=== PATIENT | female | born 1940 | race Asian ===

== ENCOUNTER 2022-05-06 11:34 | Inpatient (IN) | payer MEDICARE, OTHER, SELFPAY ==
[2022-05-06] VITALS (12 sets, daily range): BP systolic 148–181; BP diastolic 66–85; PULSE 51–71; RESP 17–23; TEMP 35.6–36.8; O2SAT 98–100; BMI 28.8; BMI 26.5
--- NOTE | 2022-05-06 11:50 | DI.CT.S_ITS ---
PROCEDURE: CT STROKE INDICATIONS: facial droop, yesterday, resolved and returned, aphasia TECHNIQUE: Noncontrast 4.5 mm thick angled axial sections acquired from the foramen magnum to the vertex, with coronal reformats. For radiation dose reduction, the following was used: automated exposure control, adjustment of mA and/or kV according to patient size. COMPARISON: None. FINDINGS: Image quality: Excellent. CSF spaces: Basal cisterns are patent. No extra-axial fluid collections. The ventricles are symmetric in size and shape. Brain: No intracranial bleeds or masses. There is mild cerebral volume loss for age, with resultant ventricular and sulcal prominence. There are mild periventricular and deep white matter chronic small vessel ischemic changes. There is intracranial internal carotid artery atherosclerosis. Skull and face: Calvarium and visualized facial bones appear intact, without suspicious lesions. Sinuses: Visualized sinuses and mastoids are clear. IMPRESSION: 1. No acute intracranial abnormalities. 2. Mild cerebral volume loss and chronic microvascular ischemic changes. The result was discussed with Dr. Christian. This study fulfills neurological imaging criteria for inclusion or exclusion of acute stroke therapies based on available published neurological guidelines. Dictated by: Caroline Garnett M.D. on 05/06/2022 at 12:16 Approved by: Caroline Garnett M.D. on 05/06/2022 at 12:17
--- NOTE | 2022-05-06 11:51 | DI.CT.S_ITS ---
PROCEDURE: CT ANGIO HEAD AND NECK INDICATIONS: facial droop, aphasia TECHNIQUE: Noncontrast images were performed earlier in the day and not repeated. After the administration of intravenous contrast, 1 mm thick sections acquired from the aortic arch through the [place]. Post-contrast 4.5 mm thick sections then re-acquired from the foramen magnum to the vertex. 3-dimensional ckvixam-ngwhdfpyg-ahxyxukgdr (MIP) and/or volume rendering reformats were acquired of the central intracranial vasculature and neck separately. For radiation dose reduction, the following was used: automated exposure control, adjustment of mA and/or kV according to patient size. COMPARISON: None. FINDINGS: Image quality: Excellent. BRAIN: CSF spaces: Ventricles are normal in size and shape. Basal cisterns are patent. No extra-axial fluid collections. Brain: No midline shift. No intracranial bleeds or masses. Krishnan-white matter interface appears intact. Skull and face: Calvarium and facial bones appear intact, without suspicious lesions. Orbits appear normal. Sinuses: Sinuses and mastoids are clear. HEAD CT ANGIOGRAPHY: Anterior circulation: Intracranial internal carotid arteries are normal in size and flow. The flow within the paired anterior cerebral arteries is normal and symmetric. The flow within the middle cerebral arteries is normal and symmetric. The anterior communicating artery is seen. No aneurysms are seen. Posterior circulation: Visualized portions of the vertebral arteries demonstrate normal caliber, and join to form a normal appearing basilar artery. Flow within the posterior cerebral arteries is normal and symmetric. No aneurysms are seen. NECK CT ANGIOGRAPHY: Carotid system: The great vessels demonstrate a conventional anatomy as they arise from the aortic arch. The origins of the common carotid arteries appear patent. The common carotid arteries demonstrate normal caliber and courses. The bifurcation regions demonstrate mild atherosclerotic irregularity and calcification, yet without a hemodynamically significant stenosis. The more distal internal carotid arteries demonstrate normal course and caliber. Posterior circulation: The origins of the vertebral arteries both appear widely patent. The more superior extracranial portions of both vertebral arteries also demonstrate normal courses and calibers. The left vertebral artery is dominant to the right. Soft tissues: Visualized neck soft tissues demonstrate no suspicious abnormalities. Bones: No suspicious bony lesions. Visualized cervical spine appears normally aligned. Cervical spine degenerative changes are seen, which are worst at the C6-C7 level, where there is moderate to severe disc space narrowing, with associated endplate irregularity and sclerosis. Mild posteriorly directed endplate osteophytes can be seen at this level. Moderate disc space narrowing can be seen at C4-C5 and C5-C6. IMPRESSION: No hemodynamically significant stenosis can be seen within the intracranial circulation or within the arteries of the neck. If there is strong clinical suspicion for an acute stroke, please consider a brain MRI for further evaluation, as it is more sensitive (assuming that there is no contraindication to MRI). Incidental note is made of: Lower cervical spine degenerative change Any quantitative measurements of stenosis were performed using NASCET criteria. Dictated by: Kvng Rush M.D. on 05/06/2022 at 11:20 Approved by: Kvng Rush M.D. on 05/06/2022 at 11:23
[2022-05-06 12:15] LABS: Add Manual Diff / Slide Review NO; Basophils Absolute Auto 0 /uL (0-100); Basophils Percent Auto 0.2 % (0-2); Eosinophils Absolute Auto 0 /uL (0-450); Eosinophils Percent Auto 0.7 % (2-4); Hematocrit 32.4 % (36-46); Hemoglobin 10.9 g/dL (12.0-16.0); Lymphocytes Absolute Auto 1400 /uL (1100-4500); Lymphocytes Percent Auto 21.4 % (25-40); Mean Corpuscular HGB Conc 33.6 % (30-36); Mean Corpuscular Hemoglobin 28.5 PG (26-34); Mean Corpuscular Volume 84.9 fL (80-100); Monocytes Absolute Auto 500 /uL (0-900); Monocytes Percent Auto 7.4 % (3-14); Neutrophils Absolute Auto 4500 /uL (1500-7000); Neutrophils Percent Auto 70.3 % (50-75); Platelet Count 266 X10^3/uL (150-400); Red Blood Cell Count 3.82 X10^6/uL (4.0-5.2); Red Cell Distribution Width 13.9 % (11.6-14.8); White Blood Cell Count 6.4 X10^3/uL (4.5-11.0)
--- NOTE | 2022-05-06 12:36 | DI.MRI.S_ITS ---
PROCEDURE: MR HEAD/BRAIN WO CON INDICATIONS: expressive aphasia, weakness TECHNIQUE: Noncontrast axial T1 spin echo, axial T2 fast spin echo, sagittal and axial FLAIR, coronal T2 fast spin echo, axial gradient echo, axial diffusion and ADC through the brain. COMPARISON: [facility], CT, CT STROKE, 05/06/2022, 11:53. FINDINGS: Image quality: Excellent. CSF Spaces: Basal cisterns are patent. No extra-axial fluid collections. Ventricles are normal in size and shape. Brain: Focal 1.5 cm restricted diffusion noted in the left minaya radiata periventricular white matter without mass effect or evidence of hemorrhage. No intracranial masses or hemorrhage. Krishnan/white matter interface is normal. Brainstem appears normal. Normal intravascular flow voids are present. Mild atrophy and white matter chronic ischemic change noted Skull and face: Calvarium has normal marrow signal. Orbits appear normal. Bilateral intraocular lens replacements noted. Sinuses: Sinuses and mastoids are clear. IMPRESSION: Acute left deep white matter infarct, 1.5 cm. No mass effect or intracranial hemorrhage. Moderate atrophy and multifocal white matter chronic ischemic change Approved by: Rob Hamilton M.D. on 05/06/2022 at 14:37
--- NOTE | 2022-05-06 12:37 | ED.NEUROSD ---
HPI - Neuro Symptoms/Deficit General Chief Complaint: Neuro Symptoms/Deficit Stated Complaint: stroke like symptoms Time Seen by Provider: 05/06/22 11:50 Source: patient and family (spouse) Mode of arrival: Family Vehicle Limitations: no limitations History of Present Illness HPI Narrative: This is a 81 year old female with a history of hypertension and a single antihypertensive. Who comes to the emergency department for stroke like symptoms. Patient had symptoms starting around noon yesterday she was seen at [facility] told she had a TIA she is given prescription for Plavix but has not started it. She does not normally take any anticoagulation, not even aspirin daily. Yesterday she had some mild speech changes, some facial droop that is reportedly resolved and some one-sided weakness her spouse and patient indicates that it had improved but not necessarily completely resolved but was very mild. This morning at 8:00 a.m. when she woke up she had pretty significant expressive aphasia, recurrent worsened facial droop and some mild weakness although they do not indicate that that is worse than yesterday. Patient has not had prior strokes. She denies any fevers, no chest pain or shortness of breath, no nausea or vomiting, no GI or urinary symptoms. She does have an expressive aphasia and has difficulty speaking clearly. Her at bedside confirms this as well. She has had a prior back surgery several years ago. No tobacco, occasional alcohol, no illicit her primary care is [facility]. At would be they indicate she had head CT, carotid US as part of their ER workup. On Anticoagulants: Yes Related Data Home Medications Medication Instructions Recorded Confirmed losartan 100 mg tablet 100 mg PO DAILY 11/10/20 05/06/22 vitamin B complex 1 tab PO DAILY 11/10/20 05/06/22 cholecalciferol (vitamin D3) 125 125 mcg PO DAILY 03/04/22 05/06/22 mcg (5,000 unit) capsule pantoprazole 40 mg tablet,delayed 1 tab PO DAILY 03/04/22 05/06/22 release metoprolol tartrate 50 mg tablet 50 tab PO DAILY 05/06/22 05/06/22 Allergies Allergy/AdvReac Type Severity Reaction Status Date / Time No Known Drug Allergies Allergy Verified 05/06/22 12:16 Review of Systems Review of Systems ROS Unobtainable: All systems reviewed & are unremarkable except as noted in HPI and below Hematologic/Lymphatic On Anticoagulants: Yes Patient History Medical History Left knee DJD Surgical History H/O section H/O removal of cyst Family History Other No pertinent family history Social History household members: spouse Smoking Status: Never smoker alcohol intake: current Smoking Status: Never smoker alcohol intake frequency: 0-2 drinks per day Substance Use Type: does not use Exam Narrative Exam Narrative: GEN: well nourished, well appearing female, alert and oriented x 3, patient appears to be in mild distress. HEENT: Atraumatic, pupils are equal round reactive to light, extraocular movements are intact, nares are clear, Throat is clear without any exudates, erythema, tonsillar enlargement or uvular deviation, perhaps mild weakness on the left when puffing cheeks. HEART: Regular rate and rhythm without murmur, clicks, rubs. Pulses are equal in upper and lower extremities LUNGS:Lungs clear to auscultation, no wheezes, rales, crackles, chest moves symmetrically, no tachypnea accessory muscle use. 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 SKIN: No rash, erythema or other skin changes Initial Vital Signs Initial Vital Signs: Vital Signs Temperature 97.7 F 05/06/22 12:00 Pulse Rate 71 05/06/22 12:00 Respiratory Rate 22 05/06/22 12:00 Blood Pressure 181/73 H 05/06/22 12:00 Pulse Oximetry 99 05/06/22 12:00 Oxygen Delivery Method 05/06/22 12:00 Scores NIH Stroke Scale Level of Conciousness: Alert, keenly responsive Ask month/age: Answers both questions correctly. Open/close eyes, close hand: Performs both tasks correctly Best gaze horizontal: Normal Visual nava: No visual loss Facial palsy: Minor paralysis, flattened nasolabial fold, asymmetry on smiling Left arm drift: No drift for full 10 sec Right arm drift: No drift for full 10 sec Left leg drift: No drift for full 5 sec Right leg drift: No drift for full 5 sec Limb ataxia: Present in one limb Sensory on face/arms/legs: Normal, no sensory loss Best language: Severe aphasia, not much is understood, fragmented Dysarthria: Mild to mod,some slurring Extinction or inattention: No abnormality Total NIH Stroke scale score: 5 Course Orders Ordered: Aspirin (Aspirin 325 Mg Tablet) 325 mg PO DAILY [facility] Last Admin: 05/07/22 08:30 Dose: 325 mg Documented By: VEE Atorvastatin Calcium (Atorvastatin 20 Mg Tablet) 40 mg PO BEDTIME [facility] Last Admin: 05/07/22 20:18 Dose: 40 mg Documented By: Admin: 05/06/22 21:33 Dose: 40 mg Documented By: INO Clopidogrel Bisulfate (Clopidogrel 75 Mg Tablet) 75 mg PO DAILY [facility] Last Admin: 05/07/22 08:30 Dose: 75 mg Documented By: VEE Enoxaparin Sodium (Enoxaparin 30 Mg/0.3 Ml Syringe) 30 mg SUBCUT DAILY [facility] Last Admin: 05/07/22 08:30 Dose: 30 mg Documented By: VEE Sodium Chloride (Normal Saline 0.9%) 1,000 mls @ 100 mls/hr IV CONT [facility] Last Admin: 05/06/22 15:41 Dose: 100 mls/hr Documented By: OW Dextrose/Sodium Chloride (Dextrose 5%-0.45% Ns) 1,000 mls @ 50 mls/hr IV CONT [facility] Last Admin: 05/07/22 14:51 Dose: 50 mls/hr Documented By: Infusion: 05/07/22 14:51 Dose: 50 mls/hr Documented By: Admin: 05/06/22 18:57 Dose: 50 mls/hr Documented By: OW Naloxone HCl (Naloxone 0.4 Mg/Ml Vial) 0.2 mg IV Q2MIN PRN PRN Reason: Opiate Reversal Pantoprazole Sodium (Pantoprazole Dr 40 Mg Tablet) 40 mg PO 0700 [facility] Last Admin: 05/07/22 06:44 Dose: Not Given Documented By: CS Discontinued Medications Aspirin (Aspirin 81 Mg Chew Tab) 324 mg PO NOW ONE Stop: 05/06/22 12:37 Last Admin: 05/06/22 12:50 Dose: 324 mg Documented By: SB Clopidogrel Bisulfate (Clopidogrel 75 Mg Tablet) 300 mg PO NOW ONE Stop: 05/06/22 16:37 Last Admin: 05/06/22 16:45 Dose: 300 mg Documented By: OW Sodium Chloride (Normal Saline 0.9%) 1,000 mls @ 150 mls/hr IV CONT [facility] Last Infusion: 05/06/22 15:07 Dose: 0 mls/hr Documented By: JUAN FRANCISCO Admin: 05/06/22 12:50 Dose: 150 mls/hr Documented By: SB Reevaluation(s) Reevaluation #1: Updated patient has been on findings. Head CT and CT angio were negative. She does not appear to be a candidate for code IR and is far outside the window for tPA. No other acute causes were found. Plan for MRI and discussion with hospitalist for admission. Consultations Consultation #1: Dr. Oliveira, hospitalist accepts for admission. MRI was ordered we discussed she is okay with brain MRI without as patient has had CT angiography. They have had aspirin. Blood pressures been appropriate and has not been receiving any medications. I did not discuss with tele stroke as patient was not candidate with negative head CT, CTA and is not called IR candidate. Vital Signs Vital signs: Vital Signs - 8 hr 05/06/22 12:00 Temperature 97.7 F Pulse Rate 71 Respiratory Rate 22 Blood Pressure 181/73 H Pulse Oximetry 99 Oxygen Delivery Method Room Air MDM - Neuro Symptoms/Deficit Lab Data Result diagrams: 05/06/22 18:25 05/06/22 18:25 Labs: Lab Results 05/06/22 05/06/22 05/06/22 Range/Units 12:00 12:00 12:00 WBC 6.4 (4.5-11.0) X10^3/uL RBC 3.82 L (4.0-5.2) X10^6/uL Hgb 10.9 L (12.0-16.0) g/dL Hct 32.4 L (36-46) % MCV 84.9 (80-100) fL MCH 28.5 (26-34) PG MCHC 33.6 (30-36) % RDW 13.9 (11.6-14.8) % Plt Count 266 (150-400) X10^3/uL Neut % (Auto) 70.3 (50-75) % Lymph % (Auto) 21.4 L (25-40) % [place] % (Auto) 7.4 (3-14) % Eos % (Auto) 0.7 L (2-4) % Baso % (Auto) 0.2 (0-2) % Neut # (Auto) 4500 (4989-0020) /uL Lymph # (Auto) 1400 (0151-3192) /uL [place] # (Auto) 500 (0-900) /uL Eos # (Auto) 0 (0-450) /uL Baso # (Auto) 0 (0-100) /uL PT 11.0 (10.1-12.7) SECONDS INR 1.0 (0.9-1.3) APTT 28 (26.4-36.2) SECONDS Sodium 137 (137-145) mmol/L Potassium 4.1 (3.4-5.1) mmol/L Chloride 105 (98-107) mmol/L Carbon Dioxide 26 (22-32) mmol/L BUN 23 H (7-17) mg/dL Creatinine 1.27 H (0.52-1.04) mg/dL Estimated GFR 42 L (>60) mL/min BUN/Creatinine Ratio 18.1 (6-22) Glucose 91 (80-110) mg/dL Calcium 9.0 (8.4-10.2) mg/dL Total Creatine Kinase 66 (30-135) U/L CK-MB (CK-2) TNP CK-MB (CK-2) Rel Index TNP Troponin I < 0.012 (0.01-0.034) ng/mL SARS-CoV-2 (PCR) (Negative) 05/06/22 Range/Units 12:55 WBC (4.5-11.0) X10^3/uL RBC (4.0-5.2) X10^6/uL Hgb (12.0-16.0) g/dL Hct (36-46) % MCV (80-100) fL MCH (26-34) PG MCHC (30-36) % RDW (11.6-14.8) % Plt Count (150-400) X10^3/uL Neut % (Auto) (50-75) % Lymph % (Auto) (25-40) % [place] % (Auto) (3-14) % Eos % (Auto) (2-4) % Baso % (Auto) (0-2) % Neut # (Auto) (2217-4574) /uL Lymph # (Auto) (9065-5322) /uL [place] # (Auto) (0-900) /uL Eos # (Auto) (0-450) /uL Baso # (Auto) (0-100) /uL PT (10.1-12.7) SECONDS INR (0.9-1.3) APTT (26.4-36.2) SECONDS Sodium (137-145) mmol/L Potassium (3.4-5.1) mmol/L Chloride (98-107) mmol/L Carbon Dioxide (22-32) mmol/L BUN (7-17) mg/dL Creatinine (0.52-1.04) mg/dL Estimated GFR (>60) mL/min BUN/Creatinine Ratio (6-22) Glucose (80-110) mg/dL Calcium (8.4-10.2) mg/dL Total Creatine Kinase (30-135) U/L CK-MB (CK-2) CK-MB (CK-2) Rel Index Troponin I (0.01-0.034) ng/mL SARS-CoV-2 (PCR) Negative (Negative) Point of Care Testing Glucose POC 87 Urine Dip Bedside Urine Glucose Negative Bedside Urine Bilirubin - Negative Bedside Urine Ketone - Negative Urine Specific [place] 1.015 Bedside Urine Occult Blood - Negative Bedside Urine pH 6.0 Bedside Urine Protein - Negative Bedside Urine Urobilinogen - Negative Bedside Urine Nitrite - Negative Bedside Urine Leukocytes - Negative Esterase Imaging Data CT scan - head: Radiologist's Impression: Close Head/Neck CTA (Signed) Kvng Rush - 05/06/[address] (Signed) Rajat Garnett - 05/06/22 DI Result CC 08/22/19 Radiology - Historical 03/24/[address] [address] [address] Scan Report Signed Patient: Marcie Joyner MR#: [id number] : 1940 Acct:[id number] Age/Sex: 81 / F Date of Service: 05/06/22 Loc: ED Accession Number: [id number] ?? Procedure: CT Stroke Ordering Provider: Jossie Christian D.O. PROCEDURE:? CT STROKE ? INDICATIONS:? facial droop, yesterday, resolved and returned, aphasia ? TECHNIQUE:? Noncontrast 4.5 mm thick angled axial sections acquired from the foramen magnum to the vertex, with coronal reformats.? For radiation dose reduction, the following was used:? automated exposure control, adjustment of mA and/or kV according to patient size.? ? COMPARISON:? None. ? FINDINGS:? Image quality:? Excellent.? ? CSF spaces:? Basal cisterns are patent.? No extra-axial fluid collections.? The ventricles are symmetric in size and shape.? ? Brain:? No intracranial bleeds or masses.? There is mild cerebral volume loss for age, with resultant ventricular and sulcal prominence.? There are mild periventricular and deep white matter chronic small vessel ischemic changes.? There is intracranial internal carotid artery atherosclerosis.? ? Skull and face:? Calvarium and visualized facial bones appear intact, without suspicious lesions.? ? Sinuses:? Visualized sinuses and mastoids are clear.? ? IMPRESSION:? ? 1. No acute intracranial abnormalities. 2. Mild cerebral volume loss and chronic microvascular ischemic changes. ? The result was discussed with Dr. Christian. ? This study fulfills neurological imaging criteria for inclusion or exclusion of acute stroke therapies based on available published neurological guidelines.? ? ? Dictated by: Caroline Garnett M.D. on 05/06/2022 at 12:16 ? ? Approved by: Caroline Garnett M.D. on 05/06/2022 at 12:17?? CTA - brain/neck: Radiologist's Impression: Close Head/Neck CTA (Signed) Kvng Rush - 05/06/[address] (Signed) Rajat Garnett - 05/06/22 DI Result CC 08/22/19 Radiology - Historical 03/24/17 [facility] [address] CT Scan Report Signed Patient: Marcie Joyner MR#: [id number] : 1940 Acct:[id number] Age/Sex: 81 / F Date of Service: 05/06/22 Loc: ED Accession Number: [id number] ?? Procedure: CT Stroke Ordering Provider: Jossie Christian D.O. PROCEDURE:? CT STROKE ? INDICATIONS:? facial droop, yesterday, resolved and returned, aphasia ? TECHNIQUE:? Noncontrast 4.5 mm thick angled axial sections acquired from the foramen magnum to the vertex, with coronal reformats.? For radiation dose reduction, the following was used:? automated exposure control, adjustment of mA and/or kV according to patient size.? ? COMPARISON:? None. ? FINDINGS:? Image quality:? Excellent.? ? CSF spaces:? Basal cisterns are patent.? No extra-axial fluid collections.? The ventricles are symmetric in size and shape.? ? Brain:? No intracranial bleeds or masses.? There is mild cerebral volume loss for age, with resultant ventricular and sulcal prominence.? There are mild periventricular and deep white matter chronic small vessel ischemic changes.? There is intracranial internal carotid artery atherosclerosis.? ? Skull and face:? Calvarium and visualized facial bones appear intact, without suspicious lesions.? ? Sinuses:? Visualized sinuses and mastoids are clear.? ? IMPRESSION:? ? 1. No acute intracranial abnormalities. 2. Mild cerebral volume loss and chronic microvascular ischemic changes. ? The result was discussed with Dr. Christian. ? This study fulfills neurological imaging criteria for inclusion or exclusion of acute stroke therapies based on available published neurological guidelines.? ? ? Dictated by: Caroline Garnett M.D. on 05/06/2022 at 12:16 ? ? Approved by: Caroline Garnett M.D. on 05/06/2022 at 12:17?? ECG Data Attestation: I personally reviewed and interpreted this ECG as follows: Interpretation: Sinus rhythm rate of 67 MO 168 QRS 82 QTC 435. No acute ST changes appreciated. MDM Narrative Medical decision making narrative: This is a 81-year-old female who was reportedly diagnosed with TIA yesterday she was started with prescription for Plavix but had not started it. She has history of hypertension but no other known risk factors besides that age. She and her indicate that symptoms had almost completely resolved but were very mild. This morning when she woke up at 8:00 a.m. she had expressive aphasia that was present upon awakening, describes some weakness as one-sided. Patient does seem to have significant speech changes. She is not a candidate for tPA secondary to wakening with her symptoms and being outside the 4 and half hour window. Initial head CT is negative an aspirin was given. CT angio shows no critical stenosis or changes. Labs show no acute cause, no high a poke ischemia. Patient case discussed with hospitalist who accepts for admission. She did receive aspirin 324 mg in the department. Continue permissive hypertension and patient has been within parameters. Stroke Core Measures Exclusion Criteria TPA in CVA: Symptom Onset >3 or 4.5 Hours Discharge Plan Departure Patient Disposition: Admitted as Observation Clinical Impression: Acute CVA (cerebrovascular accident) Admit Date/Time: 05/06/22 13:58 Admit Provider: Amaya Oliveira
[2022-05-06 12:49] LABS: PTT Partial Thromboplastin Tim 28 SECONDS (26.4-36.2)
[2022-05-06] MEDS: SODIUM CHLORIDE 0.9% 1,000 ML 150 ML IV (12:50)
[2022-05-06] MEDS: ASPIRIN 81 MG CHEW TAB 324 MG PO (12:50)
[2022-05-06 12:55] LABS: Carbon Dioxide 26 mmol/L (22-32); Chloride 105 mmol/L (98-107); Creatine Kinase 66 U/L (30-135); Potassium 4.1 mmol/L (3.4-5.1); Sodium 137 mmol/L (137-145); Troponin I < 0.012 ng/mL (0.01-0.034)
[2022-05-06 12:56] LABS: BUN Creatinine Ratio 18.1 (6-22); Blood Urea Nitrogen 23 mg/dL (7-17); Estimated Glomerular Filt Rate 42 mL/min (>60); Glucose 91 mg/dL (80-110)
--- NOTE | 2022-05-06 12:58 | PC.NURSE ---
Spouse reports symptoms started yesterday at noon. She was at [facility], diagnosed with TIA and sent home with new Rx plavix, which has not been filled yet. Pt reports all symptoms had not resolved before d/c from [facility]. This morning upon awakening around 0800, spouse noted that pt had issues with speech (slurred and trouble finding words). Pt NIH at 5 upon arriving at ED. Slight left sided droop, trouble word finding/slurred speech, left supervisor drilling and shooting slightly weaker than right. Pt reports feeling weaker on left as well.
[2022-05-06 13:16] LABS: COVID19 -Nasal RAPID Negative (Negative)
[2022-05-06] MEDS: SODIUM CHLORIDE 0.9% 1,000 ML 100 ML IV (15:41)
--- NOTE | 2022-05-06 16:28 | PM.HP.1 ---
History of Present Illness History of Present Illness Chief complaint: stroke like symptoms Narrative: cc aphasia and weakness pt is 81 y/o female with h/o uncontrolled hypertension, comes to the emergency department for weakness , aphasia, stroke like symptoms. She had symptoms yesterday, showed up in other ER and after w/u in ER she has been told mini stroke and sent home Per she improved but next morning ( today) she woke up with worsened weakness and aphasia. She presented to [facility] and CT was unremarkable but MRI shows L stroke 1.5 cm white matter. She has been given asa 325 mg and admitted to acute care. She denies chest pain, nausea, vomiting, diarrhea, headache, vision changes. She does have an expressive aphasia and has difficulty speaking clearly.? Her at bedside ? No tobacco, occasional alcohol, no illicit Patient History Medical History Left knee DJD Surgical History H/O section H/O removal of cyst Family & Social History Family History Other No pertinent family history Social History: household members spouse Prior Living Arrangements House Safety & Behavioral: Feels Safe in Current Yes Environment Been Physically Hurt or No Threatened By a Person Tobacco & Substance use: Smoking Status Never smoker alcohol intake current alcohol intake frequency 0-2 drinks per day Substance Use Type does not use Meds Home Medications and Allergies Home Medications Medication Instructions Recorded Confirmed Type losartan 100 mg tablet 100 mg PO DAILY 11/10/20 05/06/22 History vitamin B complex 1 tab PO DAILY 11/10/20 05/06/22 History cholecalciferol (vitamin D3) 125 125 mcg PO DAILY 03/04/22 05/06/22 History mcg (5,000 unit) capsule pantoprazole 40 mg tablet,delayed 1 tab PO DAILY 03/04/22 05/06/22 History release metoprolol tartrate 50 mg tablet 50 tab PO DAILY 05/06/22 05/06/22 History Allergies Allergy/AdvReac Type Severity Reaction Status Date / Time No Known Drug Allergies Allergy Verified 05/06/22 12:16 Review of Systems Review of Systems ROS: Yes All systems reviewed with the patient and are negative except as otherwise documented Eyes Eyes: Reports as per HPI ENT Ears, Nose, Mouth, and Throat: Yes as per HPI Cardiovascular Cardiovascular: Reports as per HPI Respiratory Respiratory: Reports as per HPI Gastrointestinal Gastrointestinal: Reports as per HPI Genitourinary Genitourinary: Reports as per HPI Musculoskeletal Musculoskeletal: Reports as per HPI Integumentary/Breasts Skin/Breast: Reports as per HPI Neurologic Neurologic: Reports as per HPI Psychiatric Psychiatric: Reports as per HPI Exam Vital Signs (past 8 hours): - 05/06/22 12:00 05/06/22 12:17 05/06/22 12:21 Temperature 97.7 F Pulse Rate 71 68 Respiratory Rate 22 20 Blood Pressure 181/73 H 163/68 H Pulse Oximetry 99 Oxygen Delivery Method Room Air Oxygen Flow Rate 05/06/22 12:21 05/06/22 12:30 05/06/22 12:37 Temperature Pulse Rate 67 66 Respiratory Rate 23 20 Blood Pressure 153/68 H Pulse Oximetry 99 99 Oxygen Delivery Method Oxygen Flow Rate 05/06/22 12:37 05/06/22 13:00 05/06/22 13:30 Temperature Pulse Rate 63 63 56 L Respiratory Rate 19 19 22 Blood Pressure Pulse Oximetry 99 100 100 Oxygen Delivery Method Oxygen Flow Rate 05/06/22 14:00 05/06/22 14:30 05/06/22 13:58 Temperature 96.1 F L Pulse Rate 51 L 52 L 55 L Respiratory Rate 20 20 17 Blood Pressure 148/85 H 159/77 H Pulse Oximetry 100 100 100 Oxygen Delivery Method Oxygen Flow Rate 0 Oxygen Delivery Method Room Air Oxygen Flow Rate 0 Const General: cooperative and well developed Orientation: alert, awake and oriented x3 [facility] Head: normocephalic and atraumatic Ears: external ears normal Nose: external nose normal Mouth: oral mucosae normal Eyes Pupils: PERRL EOM: EOM intact bilaterally Neck Neck: full ROM and supple Thyroid: thyroid normal Chest Chest: normal inspection of the chest Resp Auscultation: clear to auscultation bilaterally Cardio Rate: regular rate Rhythm: regular rhythm GI Inspection: normal to inspection Palpation: soft and No tender Auscultation: normal bowel sounds Back/Spine/Pelvis Back: normal to inspection Skin General: no rashes or lesions noted Neuro General: patient alert, patient awake, gait normal, moves all extremities and no focal motor deficits Cranial Nerves: CN's II-XI intact bilaterally Speech: abnormal speech Extrem General: normal to inspection, full ROM and no clubbing, cyanosis or edema Psych Mental Status: mental status grossly normal Mood: congruent mood Affect: normal affect Objective Imaging MRI - head: My impression: Acute left deep white matter infarct, 1.5 cm.? No mass effect or intracranial hemorrhage. ? Moderate atrophy and multifocal white matter chronic ischemic change ? Labs Result Diagrams: 05/06/22 12:00 05/06/22 12:00 Labs: Laboratory Results - last 24 hr 05/06/22 05/06/22 05/06/22 12:00 12:00 12:00 WBC 6.4 RBC 3.82 L Hgb 10.9 L Hct 32.4 L MCV 84.9 MCH 28.5 MCHC 33.6 RDW 13.9 Plt Count 266 Neut % (Auto) 70.3 Lymph % (Auto) 21.4 L [place] % (Auto) 7.4 Eos % (Auto) 0.7 L Baso % (Auto) 0.2 Neut # (Auto) 4500 Lymph # (Auto) 1400 [place] # (Auto) 500 Eos # (Auto) 0 Baso # (Auto) 0 PT 11.0 INR 1.0 APTT 28 Sodium 137 Potassium 4.1 Chloride 105 Carbon Dioxide 26 BUN 23 H Creatinine 1.27 H Estimated GFR 42 L BUN/Creatinine Ratio 18.1 Glucose 91 Calcium 9.0 Total Creatine Kinase 66 CK-MB (CK-2) TNP CK-MB (CK-2) Rel Index TNP Troponin I < 0.012 SARS-CoV-2 (PCR) 05/06/22 12:55 WBC RBC Hgb Hct MCV MCH MCHC RDW Plt Count Neut % (Auto) Lymph % (Auto) [place] % (Auto) Eos % (Auto) Baso % (Auto) Neut # (Auto) Lymph # (Auto) [place] # (Auto) Eos # (Auto) Baso # (Auto) PT INR APTT Sodium Potassium Chloride Carbon Dioxide BUN Creatinine Estimated GFR BUN/Creatinine Ratio Glucose Calcium Total Creatine Kinase CK-MB (CK-2) CK-MB (CK-2) Rel Index Troponin I SARS-CoV-2 (PCR) Negative Assessment & Plan Assessment & Plan narrative: 81 y/o female with L deep white matter stroke Acute CVA teleneurology consulted -continue asa 325 mg daily -Plavix 300 mg now and 765 daily for 21 days -high intensity statin -neurochecks -telemetry monitoring -PT/OT -speech consult -lipid panel in AM Hypertension - permissive hypertension -holding home meds DVT prophylaxis: lovenox Code status: full discussed with tele neurology, pt , rn and Time Spent With Patient Critical Care time: I spent a total of [] minutes of critical care time on this patient's care today; this time is exclusive of procedural time. Quality VTE Deep Vein Thrombosis/Pulmonary Embolism Present on Admission: No
[2022-05-06] MEDS: CLOPIDOGREL 75 MG TABLET 300 MG PO (16:45)
[2022-05-06 18:38] LABS: Add Manual Diff / Slide Review NO; Basophils Absolute Auto 0 /uL (0-100); Basophils Percent Auto 0.2 % (0-2); Eosinophils Absolute Auto 0 /uL (0-450); Eosinophils Percent Auto 0.6 % (2-4); Hematocrit 32.6 % (36-46); Hemoglobin 11.1 g/dL (12.0-16.0); Lymphocytes Absolute Auto 1400 /uL (1100-4500); Lymphocytes Percent Auto 24.3 % (25-40); Mean Corpuscular HGB Conc 33.9 % (30-36); Mean Corpuscular Hemoglobin 28.7 PG (26-34); Mean Corpuscular Volume 84.6 fL (80-100); Monocytes Absolute Auto 300 /uL (0-900); Monocytes Percent Auto 5.2 % (3-14); Neutrophils Absolute Auto 4000 /uL (1500-7000); Neutrophils Percent Auto 69.7 % (50-75); Platelet Count 211 X10^3/uL (150-400); Red Blood Cell Count 3.85 X10^6/uL (4.0-5.2); Red Cell Distribution Width 14.3 % (11.6-14.8); White Blood Cell Count 5.7 X10^3/uL (4.5-11.0)
[2022-05-06] MEDS: DEXTROSE 5%-0.45% NS 1,000 ML 50 ML IV (18:57)
--- NOTE | 2022-05-06 19:22 | PC.NURSE ---
Pt arrived to the unit from ED around 1530. Pt is AxOx3-4, slightly slurred speech and slow speech. VSS, pt denies pain. Pt is on RA and sats 100%. N No skin issued. pt goes to bathroom with 1 person assistance. NIH score 4 when arrived to the unit. Pt is NPO now and tomorrow pt will have speech eval. BG-87 around 1630 so pt is now on D5 1/2 NS running 50ml/hr. CT was done, no significant finding except minor ischemic change. MRI was done and found that pt has L stroke 1.5 cm whiter matter. Pt's was in the room and he'll be back tomorrow. Continue monitor.
[2022-05-06] MEDS: ATORVASTATIN 20 MG TABLET 40 MG PO (21:33)
[2022-05-07] VITALS (8 sets, daily range): BP systolic 128–155; BP diastolic 54–78; PULSE 54–60; RESP 14–19; TEMP 35.9–36.8; O2SAT 98–100
[2022-05-07 00:58] LABS: BUN Creatinine Ratio 17.7 (6-22); Blood Urea Nitrogen 20 mg/dL (7-17); Calcium 8.9 mg/dL (8.4-10.2); Carbon Dioxide 24 mmol/L (22-32); Chloride 109 mmol/L (98-107); Estimated Glomerular Filt Rate 49 mL/min (>60); Glucose 94 mg/dL (80-110); HEMOLYSIS 21 (0-50); Potassium 4.6 mmol/L (3.4-5.1); Sodium 140 mmol/L (137-145)
[2022-05-07 02:11] LABS: Cholesterol 238 mg/dL (140-199); HDL Cholesterol 59 mg/dL (40-60); LDL Cholesterol Calculated 155 mg/dL (<100); Triglycerides 121 mg/dL (35-150)
--- NOTE | 2022-05-07 08:29 | DI.ECHO.S_ITS ---
[place] +---------+ [facility] +---------+ : : [address] : : : : [id number] : : : : Phone: [phone]+ Echocardiogram Report + + :Name: BALNCHE SOLORZANO Study Date: 05/08/2022 Height: 59 in : :[facility] ReadingLocation: Weight: 131 lb: : Gender: Female BSA: 1.5 m2 : :: 1940 Age: 81 yrs : :Reason For Study: CVA : :Ordering Physician: : :BÁRBARA HIGGINS Performed By: Dayanna Maldonado : :Referring: UNSPECIFIED : + + Interpretation Summary The left ventricle is normal in size. The ejection fraction is estimated to be 65-70%. There is no LV thrombus. The right ventricle is normal in size and function. No significant valvular pathology seen. The IVC is of normal diameter and collapses greater than 50% with a sniff. This suggests a low right atrial pressure of 3 mm Hg. There is mild luminal irregularity and echogenicity in the abdominal aorta, suggestive of aortic atherosclerotic disease. Mild atherosclerotic plaque(s) in the aortic arch. The patient was in sinus bradycardia with heart rates between 51-55 bpm during the exam. Procedure: A two-dimensional transthoracic echocardiogram with color flow and Doppler was performed. The study quality was technically adequate. There is no prior echocardiogram noted for this patient. The patient was in sinus bradycardia with heart rates between 51-55 bpm during the exam. Left Ventricle: There is mild proximal septal thickening noted. There is no echo evidence for significant left ventricular outflow tract obstruction. The left ventricle is normal in size. There is no thrombus. A false chord is noted (normal variant). The ejection fraction is estimated to be 65-70%. Left ventricular systolic function is normal. There are no focal wall motion abnormalities. MV E/A: 0.59 Med Peak E' Sloan: 3.5 cm/sec E/E' med: 17.2. Right Ventricle: The right ventricle is normal in size and function. Atria: The left atrium is mildly dilated. Right atrial size is normal. There is no Doppler evidence for an interatrial shunt. Mitral Valve: There is a moderate posterior mitral annulus calcification involving the base of the posterior mitral leaflet. No typical vegetation or thrombus seen. There is no mitral valve stenosis. There is mild mitral regurgitation. Aortic Valve: The aortic valve is trileaflet. The aortic valve opens well. There is no aortic valve stenosis. No aortic regurgitation is present. Tricuspid Valve: The tricuspid valve is normal in structure and function. The right ventricular systolic pressure is estimated to be at least 20 mmHg based on an estimated right atrial pressure of 3 mm Hg. There is trace tricuspid regurgitation. Pulmonic Valve: The pulmonic valve leaflets are thin and pliable; valve motion is normal. There is trace pulmonic regurgitation. Great Vessels: The aortic root is normal size. The ascending aorta is normal in size. There is mild luminal irregularity and echogenicity in the abdominal aorta, suggestive of aortic atherosclerotic disease. Mild atherosclerotic plaque(s) in the aortic arch. The pulmonary artery is normal size. The IVC is of normal diameter and collapses greater than 50% with a sniff. This suggests a low right atrial pressure of 3 mm Hg. Pericardium/ Pleura There is no pericardial effusion. MMode/2D Measurements & Calculations LVIDd: 4.7 cm LVOT diam: 2.1 cm LVIDs: 1.8 cm Ao root diam: 3.4 cm FS: 62.1 % asc Aorta Diam: 3.5 cm IVSd: 0.69 cm Ao Arch Diam (Prox Trans): 2.3 cm LVPWd: 0.75 cm LV gomez. diameter/BSA (cm/m^2): 3.1 LV sys. diameter/BSA (cm/m^2): 1.2 LA A2 area: 18.7 cm2 RA long axis: 4.2 cm LA A4 area: 16.5 cm2 RA area: 7.2 cm2 LA length (vol): 5.0 cm RA vol: 10.4 ml LA vol: 52.7 ml RA : 6.7 ml/m2 LA vol index: 34.2 ml/m2 IVC diam: 1.7 cm RVD1 (basal): 2.2 cm TAPSE: 1.7 cm Doppler Measurements & Calculations LVOT Max Sloan: 93.9 cm/sec MV E max sloan: 59.6 cm/sec LV V1 max P.5 mmHg MV A max sloan: 100.8 cm/sec LV V1 VTI: 24.5 cm MV E/A: 0.59 Med Peak E' Sloan: 3.5 cm/sec E/E' med: 17.2 Lat Peak E' Sloan: 7.1 cm/sec E/E' lat: 8.5 E/e' average: 12.8 MV P1/2t: 92.0 msec TR max sloan: 208.1 cm/sec MV P1/2t max sloan: 60.2 cm/sec TR max P.3 mmHg MVA(P1/2t): 2.4 cm2 PA V2 max: 77.4 cm/sec PA V2 mean: 55.5 cm/sec PA mean P.3 mmHg PA Accel Time: 0.07 sec SV(LVOT): 85.4 ml Reading Physician:03:31 PM
[2022-05-07] MEDS: ENOXAPARIN 30 MG/0.3 ML SYRINGE SUBCUT (08:30)
[2022-05-07] MEDS: CLOPIDOGREL 75 MG TABLET PO (08:30)
[2022-05-07] MEDS: ASPIRIN 325 MG TABLET PO (08:30)
--- NOTE | 2022-05-07 09:18 | PT.IIE ---
Surgical History (Last Reviewed 05/06/22 @ 12:43 by Jossie Christian DO) H/O section H/O removal of cyst Medical History (Last Reviewed 05/06/22 @ 12:43 by Jossie Christian DO) Left knee DJD Physical Therapy Inpatient Evaluation/Re-Eval M1 PT/OT-IP Prior Functional Status Start: 05/07/22 07:43 Freq: NEEDED Status: Active Protocol: Document 05/07/22 09:18 AW (Rec: 05/07/22 10:06 AW [id number]) Medical Review Prior Functional Status Medical History Reviewed Yes Communication Pt's primary language is Omani. She is typically able to express herself with ease in O[place]i and Australian. Mobility and Gait Pt is independently mobile. She had left lower extremity radiculopathy last year and ultimately underwent lumbar spine surgery with good effect but feels her left leg is still somewhat weaker. Activities of Daily Living and IADL's Independent with ADL's. Pt drives. She manages her own medications. Social History Household Members spouse Living Arrangements House Number of Floors (Floors) Two Floors Number of Stairs To Enter/Railing? 2 NIMISHA with R rail ascending through the garage which is her typical entrance. One flight up to bedroom level with unilateral rail. Home Environment High Toilet,Walk in Shower, Built-In Shower Seat Home Equipment Straight Cane,Grab Bars Near Toilet,Grab Bars In Shower Additional Social History Comment Pt lives in [place] with her spouse, Kurt. M2 PT-IP Current Condition Start: 05/07/22 07:43 Freq: NEEDED Status: Active Protocol: Document 05/07/22 09:18 AW (Rec: 05/07/22 10:06 AW [id number]) Physical Therapy Current Condition Current Condition Evaluation Date 05/07/22 Treatment Diagnosis acute L CVA; impaired balance Onset Date 05/05/22 M3 PT-IP Subjective Start: 05/07/22 07:43 Freq: NEEDED Status: Active Protocol: Document 05/07/22 09:18 AW (Rec: 05/07/22 10:06 AW [id number]) Subjective Physical Therapy Visit Type Type Initial Evaluation Visit Start Time 08:52 Visit Stop Time 09:18 Total Visit Minutes 26 Notes Pt's spouse was present and contributed heavily to history as pt had difficulty communicating. Physical Therapy Visit Comments Patient Comments Pt is willing to participate with PT Therapy Pain Assessment Pain When Pain Assessed During Mobility Pain Present Pain Present Denied Pain M4 PT-IP Mobility and Gait Start: 05/07/22 07:43 Freq: NEEDED Status: Active Protocol: Document 05/07/22 09:18 AW (Rec: 05/07/22 10:06 AW [id number]) PT-Bed Mobility Assessment Supine to Sit Supine to Sit Independent Sit to Supine Sit to Supine Independent PT-Transfer Assessment Sit to and From Stand Sit to and from Stand Independent Equipment Transfer Assistive Device None,Gait Belt Orthotic/Prosthetic Devices or Brace: No Transfers Transfer Destination Bed,Chair Transfer Technique Stand Step Pivot Transfer Ability Level of Assist Independent Comments Mobility Comments Pt was lying in bed as PT arrived. BP 183/70 HR 54. She sat up EOB with good seated balance. She transferred to the chair IND. She stood and ambulated without AD a total of 200 feet SBA during balance challenges. On return to the room, pt requested return to bed. BP 155/71 HR 57 after activity. Pt was left with call light in reach. Her spouse remained in the room. Gait Assessment Gait Gait Assistance Required: Standby Assistance Distance (Feet) 200 Assistive Devices Assistive Device None,Gait Belt Orthotic/Prosthetic Devices or Brace: No Gait Deviations General Gait Pattern Antalgic,Decreased Stride Length,Decreased Feet Clearance Factors Limiting Gait Function Factors Limiting Gait Function Decreased Strength,Poor Balance Comments Gait Comments Pt completed 4 item DGI with score of 9/12 (one point deducted for path deviation during nods and two points for no change in gait speed on prompt. She did reach for tomas and furniture x 4 during ambulation but pt's spouse states this is consistent with baseline. Stair Climbing Assessment Evaluation Level of Assist On Stairs Standby Assistance Devices Stair Climbing Assistive Devices Right Railing Technique/Endurance Stair Climbing Direction Ascend and Descend Stair Climbing Technique Step Over Step Number of Steps Climbed 10 Query Text: Stair Climbing Set # Repetitions (reps) 1 Comments Stair Climbing Comments Good foot clearance, no sign of imbalance or incoordination . PT-Balance Assessment Sitting Balance and Reactions Static Sitting Balance Ability Normal Dynamic Sitting Balance Ability Normal Standing Balance and Reactions Static Standing Balance Ability Good Dynamic Standing Balance Ability Fair Device Used none Functional Assessments Functional Tests Dynamic Gait Index 9/12 on 4-item DGI M5 PT-IP Objective Assessments Start: 05/07/22 07:43 Freq: NEEDED Status: Active Protocol: Document 05/07/22 09:18 AW (Rec: 05/07/22 10:06 AW [id number]) Orientation Orientation/Cognition Level of Alertness Alert Orientation Name,Day of Week,Place, Situation Language Function Ability Expressive Aphasia,Garbled Speech,Word Finding Difficulties,Australian as Second Language Safety Awareness Understands Safety Issues Comments Pt's primary language is O[place]i. During this encounter, she communicated in short Australian phrases - 2 words at most. Gross Range of Motion Upper Extremity ROM Assessment Within Functional Limits Lower Extremity ROM Assessment Within Functional Limits Strength Upper Extremity Strength Assessment Bilaterally Impaired Shoulder 4/5 Elbow 4+/5 Wrist 4/5 Lower Extremity Strength Assessment Bilaterally Impaired Hip 4/5 Knee 4/5 flexion; 4+/5 extension Ankle 4+/5 DF Comments Strength Comments No unilateral deficit was appreciated Coordination Assessment Gross Coordination Gross Coordination WNL Assessment Finger to Nose Test Normal Performance Pronation/Supination Test Normal Performance Foot Tapping Test Normal Performance Sensation Assessment Sensation Gross Sensation WNL Muscle Tone Muscle Tone WNL Yes Other Assessments Other Other Assessments Oculomotor and vestibular screens were grossly normal. Pt does have left facial droop and left-sided glossal weakness. M6 PT-IP Treatment Start: 05/07/22 07:43 Freq: NEEDED Status: Active Protocol: Document 05/07/22 09:18 AW (Rec: 05/07/22 10:06 AW [id number]) Physical Therapy Treatment Education Education Provided Safety Other Treatments Other Treatment Performed Educated pt and her spouse on signs and symptoms of CVA as well as need for immediate treatment at onset of symptoms . M7 PT-IP Assessment and Plan Start: 05/07/22 07:43 Freq: NEEDED Status: Active Protocol: Document 05/07/22 09:18 AW (Rec: 05/07/22 10:06 AW [id number]) PT Summary Assessment and Plan Potential Rehabilitation Potential Good Status of Condition at Evaluation Evolving Summary Impairments Strength,Balance,Gait Assessment Summary Marcie is an 81 yo woman admitted per stroke protocol with symptoms of expressive aphasia and facial weakness. MRI reveals acute left minaya radiata infarct. Marcie is independent in all regards at baseline. She had lumbar surgery last October and admits to mild left-sided weakness since that time. On assessment, all strength and sensation were equal bilaterally. Pt does continue to present with expressive aphasia and facial weakness. Coordination was within normal limits. Balance was assessed with 4-item Dynamic Gait Index and pt scored 9/12. Pt's spouse notes gait and balance appear to be at baseline for her. PT recommends outpatient PT to address strength and balance concerns. No acute PT needs are identified and pt will be safe to discharge home once medically stable. PT remains available for re- consult if pt condition should change. Frequency of Treatment Frequency Of Treatment Discharge Recommendations To Nursing Amount of Assist Needed Standby Assistance,1 Person Assist Discharge Recommendations PT Discharge Recommendations Home,Home with Assistance, Outpatient PT Transportation Needs at Discharge Private Vehicle
--- NOTE | 2022-05-07 11:00 | P.PN_ITS ---
Subjective Subjective Interval history: speech is improving, denies chest pain, headache, vision changes Exam Vital Signs (past 8 hours): - 05/07/22 04:00 05/07/22 07:16 05/07/22 07:15 Temperature 97.4 F L 97.0 F L Pulse Rate 54 L 55 L Respiratory Rate 17 17 Blood Pressure 128/54 L 155/69 H Pulse Oximetry 100 99 99 Oxygen Delivery Method Room Air Oxygen Flow Rate 0 Oxygen Delivery Method Room Air Oxygen Flow Rate 0 Const General: cooperative and well developed Orientation: alert, awake and oriented x3 HENMT Head: normocephalic and atraumatic Ears: external ears normal Nose: external nose normal Mouth: oral mucosae normal Eyes Pupils: PERRL EOM: EOM intact bilaterally Neck Neck: full ROM and supple Thyroid: thyroid normal Chest Chest: normal inspection of the chest Resp Auscultation: clear to auscultation bilaterally Cardio Rate: regular rate Rhythm: regular rhythm GI Inspection: normal to inspection Palpation: soft and No tender Auscultation: normal bowel sounds Back/Spine/Pelvis Back: normal to inspection Skin General: no rashes or lesions noted Neuro General: patient alert, patient awake, gait normal, moves all extremities and no focal motor deficits Cranial Nerves: CN's II-XI intact bilaterally Speech: abnormal speech Extrem General: normal to inspection, full ROM and no clubbing, cyanosis or edema Psych Mental Status: mental status grossly normal Mood: congruent mood Affect: normal affect Objective Labs Result Diagrams: 05/06/22 18:25 05/06/22 18:25 Labs: Laboratory Results - last 24 hr 05/06/22 05/06/22 05/06/22 12:00 12:00 12:00 WBC 6.4 RBC 3.82 L Hgb 10.9 L Hct 32.4 L MCV 84.9 MCH 28.5 MCHC 33.6 RDW 13.9 Plt Count 266 Neut % (Auto) 70.3 Lymph % (Auto) 21.4 L [place] % (Auto) 7.4 Eos % (Auto) 0.7 L Baso % (Auto) 0.2 Neut # (Auto) 4500 Lymph # (Auto) 1400 [place] # (Auto) 500 Eos # (Auto) 0 Baso # (Auto) 0 PT 11.0 INR 1.0 APTT 28 Sodium 137 Potassium 4.1 Chloride 105 Carbon Dioxide 26 BUN 23 H Creatinine 1.27 H Estimated GFR 42 L BUN/Creatinine Ratio 18.1 Glucose 91 Calcium 9.0 Total Creatine Kinase 66 CK-MB (CK-2) TNP CK-MB (CK-2) Rel Index TNP Troponin I < 0.012 Triglycerides Cholesterol LDL Cholesterol, Calc HDL Cholesterol SARS-CoV-2 (PCR) 05/06/22 05/06/22 05/06/22 12:55 18:25 18:25 WBC 5.7 RBC 3.85 L Hgb 11.1 L Hct 32.6 L MCV 84.6 MCH 28.7 MCHC 33.9 RDW 14.3 Plt Count 211 Neut % (Auto) 69.7 Lymph % (Auto) 24.3 L [place] % (Auto) 5.2 Eos % (Auto) 0.6 L Baso % (Auto) 0.2 Neut # (Auto) 4000 Lymph # (Auto) 1400 [place] # (Auto) 300 Eos # (Auto) 0 Baso # (Auto) 0 PT INR APTT Sodium 140 Potassium 4.6 Chloride 109 H Carbon Dioxide 24 BUN 20 H Creatinine 1.13 H Estimated GFR 49 L BUN/Creatinine Ratio 17.7 Glucose 94 Calcium 8.9 Total Creatine Kinase CK-MB (CK-2) CK-MB (CK-2) Rel Index Troponin I Triglycerides Cholesterol LDL Cholesterol, Calc HDL Cholesterol SARS-CoV-2 (PCR) Negative 05/06/22 18:25 WBC RBC Hgb Hct MCV MCH MCHC RDW Plt Count Neut % (Auto) Lymph % (Auto) [place] % (Auto) Eos % (Auto) Baso % (Auto) Neut # (Auto) Lymph # (Auto) [place] # (Auto) Eos # (Auto) Baso # (Auto) PT INR APTT Sodium Potassium Chloride Carbon Dioxide BUN Creatinine Estimated GFR BUN/Creatinine Ratio Glucose Calcium Total Creatine Kinase CK-MB (CK-2) CK-MB (CK-2) Rel Index Troponin I Triglycerides 121 Cholesterol 238 H LDL Cholesterol, Calc 155 H HDL Cholesterol 59 SARS-CoV-2 (PCR) [facility] Medical History Left knee DJD Surgical History H/O section H/O removal of cyst Family History Other No pertinent family history Social History household members: spouse Smoking Status: Never smoker alcohol intake: current Assessment & Plan Assessment & Plan narrative: 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, 1.5 cm) teleneurology consulted -continue asa 325 mg daily -Plavix 75 mg daily for 21 days -high intensity statin daily -neurochecks -telemetry monitoring -PT/OT evaluated -speech consult pendng -lipid panel with high LDH -ECHO is pending Hypertension - permissive hypertension - holding home meds DVT prophylaxis: lovenox Code status: full discussed with meeting and pt, on bedside, rn Time Spent With Patient Critical Care time: I spent a total of [] minutes of critical care time on this patient's care today; this time is exclusive of procedural time. Quality VTE Deep Vein Thrombosis/Pulmonary Embolism Present on Admission: No
--- NOTE | 2022-05-07 12:04 | ST.IPCSEOM ---
Visit Care Team Role Provider Type Leighann Lane PA-C Primary Care Provider Non-Staff Specialty: Medical Address: [facility] [address], [place], [address] Email: Jossie Christian DO Emergency Provider Physician Referring Provider Specialty: Emergency Medicine Address: [address] [place] [address], [address] Email: [email or web address] [email or web address] Admit Provider Physician Attending Provider Specialty: Internal Medicine Address: [address] [place] [address], [address] Phone: Fax: Email: [email or web address] Past Medical History (Last Reviewed 05/06/22 @ 12:43 by Jossie Christian DO) Left knee DJD (Medical) Speech-Language Pathology Swallow Evaluation 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 Clinical Swallow Evaluation Start: 05/07/22 11:36 Freq: Status: Active Protocol: Document 05/07/22 11:37 MG (Rec: 05/07/22 12:04 MG [id number]) Clinical Swallow Evaluation Session Time Visit Start Time 10:55 Visit Stop Time 11:35 Total Visit Minutes 40 Visit Information Visit Number 1 Setting Assessment Location Acute Care Visit Type Note Type Initial evaluation Next Note Type Next Note Type Treatment Note Patient Information Identification Type Name,Wristband History Pt is an 81 year old female with a history of hypertension and a single antihypertensive who comes to the emergency department for stroke like symptoms. Patient had symptoms starting around noon yesterday she was seen at [facility] told she had a TIA. She was given prescription for Plavix but has not started it. Yesterday she had some mild speech changes, some facial droop that is reportedly resolved and some one-sided weakness her spouse and patient indicates that it had improved but not necessarily completely resolved but was very mild. This morning at 8: 00 a.m. when she woke up she had pretty significant expressive aphasia, recurrent worsened facial droop and some mild weakness although they do not indicate that that is worse than yesterday. Patient has not had prior strokes. She denies any fevers, no chest pain or shortness of breath, no nausea or vomiting, no GI or urinary symptoms. She does have an expressive aphasia and has difficulty speaking clearly. Her at bedside confirms this as well. She presented to [facility] and CT was unremarkable but MRI shows L stroke 1.5 cm white matter. Subjective Observations Pt was observed resting in bed in a reclined position. The pt's spouse was in chair next to bedside. Both were agreeable to ST evaluation for swallowing and speech. Pt is currently NPO. Per discussion with nurse prior to seeing the pt, the pt did take oral medication this AM with sips of water; no concerns noted. Of note, pt is from [facility] and [place] Islander is her second language. Reported by Patient Current Diet Nothing by mouth Baseline Feeding Method Independent in self-feeding Objective Assessment Mental Status Alert,Responsive,Cooperative Oral Integrity WFL Dentition Within normal limits Lip Function Within normal limits Observation of Lips at Rest Symmetrical Pucker Within normal limits Lip Retraction Within normal limits Alternating Pucker/Lip Retraction Within normal limits Tongue Function Within normal limits Observations of Tongue at Rest Within normal limits Tongue Protrusion Within normal limits Tongue Retraction Within normal limits Tongue Lateralization Within normal limits Jaw Function Within normal limits Observations of Jaw at Rest Within normal limits Jaw Opening Within normal limits Jaw Closing Within normal limits Jaw Lateralization Within normal limits Jaw Protrusion Within normal limits Jaw Retraction Within normal limits Hard/Soft Palate Function Within normal limits Observations of Hard/Soft Palate Within normal limits Nasality Within normal limits Phonation Within normal limits Respiratory Sufficiency Within normal limits Comment Pt followed 1 and 2 simple step directions fairly well. No overt changes or weakness is observed in the formal OME assessment at this time. Food and Liquid Trials Position During Assessment Upright (90 degrees) Liquids Trialed Ice chips,Thin Solids Trialed Puree,Dysphagia Mechanical, Dysphagia Advanced,Mechanical Soft,Regular Administration Type Tea spoon,Cup single sip, Controlled cup sip,Cup consecutive sips,Straw,Self- feeding Oral Impairment Within functional limits Oral Phase Comments No anterior spillage noted on all liquid and solid trials. No pocketing noted on solid trials; pt cleared oral residue independently or with a liquid wash. On self feeding , the pt was observed to take small bites/sips, which spouse reported is typically how she eats/drinks at home. Pharyngeal Impairment Within functional limits Pharyngeal Phase Comments Laryngeal palpation indicated adequate hyolaryngeal movement as well as adequate anterior hyoid excursion. On all trials of solids/liquids, no overt s /sx of aspiration noted. Pt presented with a strong, clear voice and no coughing/choking observed. Pt reported to not have difficulties when asked. Fatigue/Endurance Endurance WNL Findings Swallowing Function Within functional limits Swallowing Function Comments Pt currently presents with no dysphagia at this time. Severity of Swallow Impairment Within functional limits Prognosis Good Comment Of note, pt reported to have be having difficulties with word finding or speech. Pt's did report that he has noticed changes in her word finding. On confrontation naming, pt got 7/10 correct responses. On identifying the function of an item with 3 choices, pt got 6/10 correct. This 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 went over activities and strategies to practice with word finding difficulties . Further assessment may be warranted to decipher if there is a language difference vs disorder and treatment to provide education to pt and spouse. Impact on Safety and Functioning No limitations Recommendations Instrumental Assessment No Recommended Solids Regular Recommended Liquids Thin Safety Precautions/Swallowing Feed only when alert,Remain Recommendations upright (90 degrees) during all oral intake,Small bites and sips when eating,Slow rate ; swallow between bites, Alternate liquids and solids Medication Recommendations As Tolerated Education Patient/Caregiver Education Described results of evaluation,Patient expressed understanding of evaluation, Patient expressed agreement with goals & treatment plans, Family/caregivers expressed understanding of evaluation, Family/caregivers expressed agreement with goals & treatment plans,Patient expressed understanding of safety precautions,Patient expressed understanding of feeding recommendations,Family /caregivers expressed understanding of safety precautions,Family/caregivers expressed understanding of feeding recommendations, Patient requires further education/training,Family/ caregivers require further education/training Goals Short-term Goals Pt and family will participate in further education re: word finding difficulties, CVA, activities to trial, plan post hospital stay. Pt will utilize word finding strategy with 1 verbal cue to improve communication abilities. Long-term Goals Pt will utilize word finding strategy independently to improve communication abilities.
--- NOTE | 2022-05-07 13:15 | CM.DANOTE ---
Initial Discharge Planning Note: Case received, EMR reviewed and met with patient. Introduced self and role. 81 year old female admitted yesterday afternoon to the care of the hospitalist team. PCP Leighann Lane Payer: Medicare and for Life Patient was admitted for weakness, aphasia, stroke like symptoms which started yesterday. Patient sitting up in bed with at her side. He states that she walks without difficulty and able to care for herself independently and drives. According to notes she has developed expressive aphasia. She speaks minimally but understands questions and tracks with questions. Her primary language is [place]inean but she is apparently fluent in Malawian, slowed word finding. Kurt is also helpful in providing information. PT and ST evals done today. PT recommends up with SBA, 1 person. Also outpatient PT P: Plan is to return home with previous home arrangement and outpatient PT. ST conducted swallow eval and finds no dysphagia at this time. Recommends regular diet and thin liquids, 90 degrees sitting, small amounts, slow rate. Spouse will transport home to [place] upon discharge via private vehicle. RONY Discharge Planning/Care Management CM Discharge Assessment Start: 05/07/22 13:12 Freq: Status: Active Protocol: Document 05/07/22 13:13 (Rec: 05/07/22 13:15 [id number]) Discharge Planning Assessment Assigned Computer Processing Scheduler Shannan Duarte RN/CRYSTALP Advance Directives? Yes Advance Directives on File No History Provided By Patient,Medical Record Prior Living Arrangements House Household Members spouse Type of transporation used prior to Relies on Others admit Independent with ADL's Yes Is patient alert and oriented? Yes Needs Assistance With Home Chores / Shopping Caregiver for Another No Barriers to Discharge No Discharge Plan Home Transportation Arrangement Spouse Kurt will transport patient home via private vehicle Additional Comment Awaiting PT/OT/ST evaluations Whiteboard Updated in Patient Room with Yes name and ext. # of Computer Processing Scheduler Review Status In Process Next Review Type Continued Stay Review
[2022-05-07] MEDS: DEXTROSE 5%-0.45% NS 1,000 ML 50 ML IV (14:51)
--- NOTE | 2022-05-07 15:27 | PC.NURSE ---
Pt having relatively uneventful day. Denies discomfort. Left side remains a little weaker that right. Swallow eval done by speech therapy, may have dysphagia diet. IVF D5 1/2 NS @ 50cc/hr infusing into the LAC via pump w/o incidence. Tele NSR per ICU staff. CBG's WNL Call light w/in reach, bed alarm on for pt safety. Continue w/plan of care.
[2022-05-07] MEDS: ATORVASTATIN 20 MG TABLET 40 MG PO (20:18)
[2022-05-08] VITALS (8 sets, daily range): BP systolic 135–189; BP diastolic 62–72; PULSE 51–60; RESP 15–16; TEMP 36.1–36.4; O2SAT 98–100
[2022-05-08] MEDS: PANTOPRAZOLE DR 40 MG TABLET PO (06:51)
[2022-05-08] MEDS: ENOXAPARIN 30 MG/0.3 ML SYRINGE SUBCUT (09:28)
[2022-05-08] MEDS: ASPIRIN 325 MG TABLET PO (09:28)
[2022-05-08] MEDS: CLOPIDOGREL 75 MG TABLET PO (09:28)
--- NOTE | 2022-05-08 10:50 | P.PN_ITS ---
Subjective Subjective Interval history: pt is awake, alert, speech is slightly improved, c/o memory issues, at bedside Exam Vital Signs (past 8 hours): - 05/08/22 07:33 05/08/22 09:00 Temperature 97.4 F L Pulse Rate 51 L Respiratory Rate 15 Blood Pressure 152/70 H Pulse Oximetry 98 100 Oxygen Delivery Method Room Air Oxygen Flow Rate 0 Oxygen Delivery Method Room Air Oxygen Flow Rate 0 Const General: cooperative and well developed Orientation: alert, awake and oriented x3 HENMT Head: normocephalic and atraumatic Ears: external ears normal Nose: external nose normal Mouth: oral mucosae normal Eyes Pupils: PERRL EOM: EOM intact bilaterally Neck Neck: full ROM and supple Thyroid: thyroid normal Chest Chest: normal inspection of the chest Resp Auscultation: clear to auscultation bilaterally Cardio Rate: regular rate Rhythm: regular rhythm GI Inspection: normal to inspection Palpation: soft and No tender Auscultation: normal bowel sounds Back/Spine/Pelvis Back: normal to inspection Skin General: no rashes or lesions noted Neuro General: patient alert, patient awake, gait normal, moves all extremities and no focal motor deficits Cranial Nerves: CN's II-XI intact bilaterally Speech: abnormal speech Extrem General: normal to inspection, full ROM and no clubbing, cyanosis or edema Psych Mental Status: mental status grossly normal Mood: congruent mood Affect: normal affect Objective Labs Result Diagrams: 05/06/22 18:25 05/06/22 18:25 [facility] Medical History Left knee DJD Surgical History H/O section H/O removal of cyst Family History Other No pertinent family history Social History household members: spouse Smoking Status: Never smoker alcohol intake: current Assessment & Plan Assessment & Plan narrative: 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, 1.5 cm) teleneurology consulted -continue asa 325 mg daily -Plavix 75 mg daily for 21 days -high intensity statin daily -neurochecks -telemetry monitoring -speech consulted, pt is on dysphagia diet -PT/OT evaluated, needs outpatient PT/OT -lipid panel with high LDH -ECHO is pending Hypertension - permissive hypertension currently BP 140-150 systolic - holding home meds DVT prophylaxis: lovenox Code status: full discussed with pt, on bedside, rn, CM Time Spent With Patient Critical Care time: I spent a total of [] minutes of critical care time on this patient's care today; this time is exclusive of procedural time. Quality VTE Deep Vein Thrombosis/Pulmonary Embolism Present on Admission: No
--- NOTE | 2022-05-08 16:38 | CM.DPC ---
Discharge Planning Note: 81 year old patient s/p CVA with some expressive aphasia, minimal expression; resting in bed with spouse next to her. She states she feels a little better. Echo pending. P: According to hospitalist patient needs cardiology consult upon discharge for home heart monitoring. Also outpatient PT is recommended by PT. Shannan Duarte RN/DCP
[2022-05-08] MEDS: SODIUM CHLORIDE 0.9% FLUSH 10 ML IV (20:40)
[2022-05-08] MEDS: ATORVASTATIN 20 MG TABLET 40 MG PO (20:40)
--- NOTE | 2022-05-08 23:09 | PC.NURSE ---
Patient is alert and oriented except identified age as 80 rather than 81. NIH = 2 as has some slurring of words as well as delay in responses and some difficulty with word finding. Breath sounds CTA with RA sat of 100%. HRR w/telemetry reading of SB w/BBB (rate 59) and elevated BP of 146/70 (MD allowing for permissive hypertension). Denied nausea. BT present and is passing flatus. Denied dysuria, frequency or urgency with urination. Independent with bed mobility and is out of bed with SBA; states she has some bilateral LE weakness. Denied pain. Declines to wear SCD's so reminded to ankle wave when awake. Fall risk score is moderate but spouse at bedside/rooming in so alarm is not activated.
[2022-05-09 00:50] VITALS: BP 141/60; PULSE 69; RESP 14; TEMP 36.3; O2SAT 99
[2022-05-09 05:00] VITALS: BP 150/66; PULSE 64; RESP 14; TEMP 36.3; O2SAT 100
[2022-05-09] MEDS: PANTOPRAZOLE DR 40 MG TABLET PO (06:19)
[2022-05-09 07:28] VITALS: O2SAT 99
[2022-05-09 09:00] VITALS: BP 142/65; PULSE 53; RESP 16; TEMP 36.3; O2SAT 99
[2022-05-09] MEDS: ENOXAPARIN 30 MG/0.3 ML SYRINGE SUBCUT (09:39)
[2022-05-09] MEDS: CLOPIDOGREL 75 MG TABLET PO (09:39)
[2022-05-09] MEDS: SODIUM CHLORIDE 0.9% FLUSH 10 ML IV (09:39)
[2022-05-09 10:24] LABS: Blood Urea Nitrogen 23 mg/dL (7-17); Carbon Dioxide 25 mmol/L (22-32); Chloride 106 mmol/L (98-107); Estimated Glomerular Filt Rate 39 mL/min (>60); Glucose 140 mg/dL (80-110); HEMOLYSIS < 15 (0-50); Potassium 4.1 mmol/L (3.4-5.1); Sodium 138 mmol/L (137-145)
--- NOTE | 2022-05-09 10:30 | PM.DS.1 ---
History of Present Illness History of Present Illness Chief complaint: stroke like symptoms Narrative: cc aphasia and weakness pt is 81 y/o female with h/o uncontrolled hypertension, comes to the emergency department for weakness , aphasia, stroke like symptoms. She had symptoms yesterday, showed up in other ER and after w/u in ER she has been told mini stroke and sent home Per she improved but next morning ( today) she woke up with worsened weakness and aphasia. She presented to [place] ER and CT was unremarkable but MRI shows L stroke 1.5 cm white matter. She has been given asa 325 mg and admitted to acute care. She denies chest pain, nausea, vomiting, diarrhea, headache, vision changes. She does have an expressive aphasia and has difficulty speaking clearly.? Her at bedside ? No tobacco, occasional alcohol, no illicit Discharge Providers Provider Date of admission: 05/06/22 13:58 Discharge Date: 05/09/22 Primary care physician: Leighann Lane PA-C Consults: 05/06/22 16:02 Consult with [facility] Comment: Physician Instructions: Contact [employer] [facility] for consult 05/06/22 17:06 Consult to Physical Therapy Evaluate & Treat Comment: Physician Instructions: Evaluate and Treat Consult to Speech Therapy Evaluate & Treat Comment: Physician Instructions: Evaluate and treat Discharge provider: Amaya Oliveira Summary Hospital Course Discharge Diagnosis: Acute Left Deep White Matter CVA Hospital Course: Acute CVA (?left deep white matter infarct, 1.5 cm) ?teleneurology consulted, continued asa, palvix, atorvastain needs tro be on dual antiplatellets therapy for 21 days and then asa y -speech consulted, pt is on dysphagia diet, recommended PT/OT outpatient , ECHO grossly unremarkable, but pt needs to f/u cardiology for loop recording/Holter monitoring, this was discussed in details with pt and at bedside Hypertension allowed permissive hypertension while inpatient, pt was advised to control her blood pressure and record BP measurements, she is on losartan and metoprolol Hyperlipidemia - on high intensity statin plan of discharge was discussed in details with pt, , rn and CM Exam Vital Signs (past 8 hours): - 05/09/22 05:00 05/09/22 07:28 05/09/22 09:00 Temperature 97.4 F L 97.4 F L Pulse Rate 64 53 L Respiratory Rate 14 16 Blood Pressure 150/66 H 142/65 H Pulse Oximetry 100 99 99 Oxygen Delivery Method Room Air Oxygen Flow Rate 0 0 Oxygen Delivery Method Room Air Oxygen Flow Rate 0 Const General: cooperative and well developed Orientation: alert, awake and oriented x3 HENMT Head: normocephalic and atraumatic Ears: external ears normal Nose: external nose normal Mouth: oral mucosae normal Eyes Pupils: PERRL EOM: EOM intact bilaterally Neck Neck: full ROM and supple Thyroid: thyroid normal Chest Chest: normal inspection of the chest Resp Auscultation: clear to auscultation bilaterally Cardio Rate: regular rate Rhythm: regular rhythm GI Inspection: normal to inspection Palpation: soft and No tender Auscultation: normal bowel sounds Back/Spine/Pelvis Back: normal to inspection Skin General: no rashes or lesions noted Neuro General: patient alert, patient awake, gait normal, moves all extremities and no focal motor deficits Cranial Nerves: CN's II-XI intact bilaterally Speech: abnormal speech Extrem General: normal to inspection, full ROM and no clubbing, cyanosis or edema Psych Mental Status: mental status grossly normal Mood: congruent mood Affect: normal affect Objective Labs Result Diagrams: 05/06/22 18:25 05/09/22 09:40 Labs: Laboratory Results - last 24 hr 05/09/22 09:40 Sodium 138 Potassium 4.1 Chloride 106 Carbon Dioxide 25 BUN 23 H Creatinine 1.35 H Estimated GFR 39 L BUN/Creatinine Ratio 17.0 Glucose 140 H Calcium 9.0 PFSH Medical History Left knee DJD Surgical History H/O section H/O removal of cyst Family History Other No pertinent family history Social History household members: spouse Smoking Status: Never smoker alcohol intake: current Discharge Plan Discharge Plan Patient Disposition: Home Nursing Discharge Comment: outpatient PT/OT, outpatient speech therapy pt has to see PCP tomorrow and set up loop recorder or holter monitoring , f/u cardiology and neurology Discharge orders & Medications Prescriptions: New atorvastatin [Lipitor] 20 mg Tablet 40 mg PO BEDTIME Qty: 30 0RF clopidogrel 75 mg Tablet 75 mg PO DAILY Qty: 20 0RF aspirin 81 mg Tablet,Delayed Release (Dr/Ec) 81 mg PO DAILY Qty: 30 0RF Continued metoprolol tartrate 50 mg tablet 50 tab PO DAILY cholecalciferol (vitamin D3) 125 mcg (5,000 unit) capsule 125 mcg PO DAILY pantoprazole 40 mg tablet,delayed release (DR/EC) 1 tab PO DAILY vitamin B complex Tablet 1 tab PO DAILY losartan 100 mg tablet 100 mg PO DAILY Follow up/Referrals: Leighann Lane PA-C [Primary Care Provider] - Diet/Activity/Treatments Diet comment: dysphagia diet Discharge Data Primary Care Provider: Leighann Lane Quality VTE Deep Vein Thrombosis/Pulmonary Embolism Present on Admission: No
--- NOTE | 2022-05-09 11:08 | ST.IPTN ---
Visit Care Team Role Provider Type Leighann Lane PA-C Primary Care Provider Non-Staff Address: [facility] [address], [place], [address] Jossie Christian DO Emergency Provider Physician Referring Provider Address: [address] [place] [address], [address] Amaya Oliveira Admit Provider Physician Attending Provider Address: [address] [place] [address], [address] Phone: Fax: GENERATING STATION MECHANIC Treatment Note GENERATING STATION MECHANIC Treatment Note Start: 05/07/22 11:36 Freq: Status: Active Protocol: Document 05/09/22 10:53 ZS (Rec: 05/09/22 11:08 ZS [id number]) Speech Pathology Treatment Note Session Time Visit Start Time 10:30 Visit Stop Time 10:50 Total Visit Minutes 20 Visit Information Visit Number 1 Setting Treatment Setting Acute Care Visit Type Note Type Treatment Note General Information Patient History Pt is an 81 year old female with a history of hypertension and a single antihypertensive who comes to the emergency department for stroke like symptoms. Patient had symptoms starting around noon yesterday she was seen at [facility] told she had a TIA. She was given prescription for Plavix but has not started it. Yesterday she had some mild speech changes, some facial droop that is reportedly resolved and some one-sided weakness her spouse and patient indicates that it had improved but not necessarily completely resolved but was very mild. On 05/07 at 8:00am when she woke up she had pretty significant expressive aphasia, recurrent worsened facial droop and some mild weakness although they do not indicate that is worse than yesterday. Patient has not had prior strokes. She denies any fevers, no chest pain or shortness of breath, no nausea or vomiting, no GI or urinary symptoms. She does have expressive aphasia and has difficulty speaking clearly. Her at bedside confirms this as well. She presented to [place] ER and CT was unremarkable but MRI shows L stroke 1.5 cm white matter. Subjective Identification Type Name Identification Reconciled With Medical Record,ID Bracelet Others Present Family Observations/Patient Presentation Pt was seated upright in bed with at bedside when GENERATING STATION MECHANIC arrived. and pt reported improvement in ability to communicate, though still some word finding difficulties. Chief Complaint(s) Language Objective Short Term Goals Pt and family will participate in further education re: word finding difficulties, CVA, activities to trial, plan post hospital stay. Pt will utilize word finding strategy with 1 verbal cue to improve communication abilities. Pt will utilize word finding strategy independently to improve communication abilities. Treatment Activities Hospitalist reported pt will discharge today. Discussed plan of care post-hospital stay. Provided pt education regarding word finding difficulties and language differences. Assessment Impairments Identified Expressive language Assessment of Overall Progress Improving Assessment of Improvement Pt correctly identified 7/8 objects during confrontation naming task. She did not use a strategy for the final item, but was able to identify it in Macedonian, per . Pt identified salient nouns and verbs during picture description task, though sentences were incomplete and grammatically errored. Unclear whether sentence structure is due to Panamanian as a second language or expressive aphasia , though and pt reported she was able to communicate much easier in Panamanian prior to the stroke. Pt has not communicated much in Macedonian since the stroke and is unaware of any deficits in expressive language in Macedonian. Pt's son will be visiting tomorrow evening, and he speaks fluent Macedonian and Panamanian . Pt to attempt communication in each language with son to determine if there are changes in both languages since stroke. Recommend referral for outpatient speech therapy services to ensure continued improvement of expressive communication skills following stroke, to which pt was in agreement. Reviewed with Patient Goals,Progress Being Made,Home Exercise Program Plan Therapeutic Contents Expressive Language Training Provided Patient/Caregiver Instruction Plan of Care,Questions/ Concerns Therapy Recommendations Continue with Current Program
[2022-05-09 12:00] VITALS: BP 135/70; PULSE 58; RESP 15; TEMP 36.4; O2SAT 100
== END 2022-05-09 12:15 | disposition home or self-care (01) | DRG 66 ==
LOC: ED 11:50 → AC 14:49
PROVIDERS: Admitting Provider Internal Medicine; Emergency Provider Emergency Medicine; PCP Physician Assistant Medical; Referring Provider Emergency Medicine; Visit Provider Internal Medicine
DX: I63.9 Cerebral infarction, unspecified (principal); R47.01 Aphasia; I10 Essential (primary) hypertension; E78.5 Hyperlipidemia, unspecified; R29.705 NIHSS score 5; R29.704 NIHSS score 4; Z20.822 Contact with and (suspected) exposure to COVID-19
CPT/HCPCS: 36415; 70450; 70496; 70498; 70551; 80048; 80061; 81003; 82550; 82962; 84484; 85025; 85610; 85730; 87635; 92507; 92610; 93005; 93010; 93306; 94760; 94762; 97162; 99285; C9803; J1650

== ENCOUNTER → 2022-06-08 12:46 | Outpatient (CLI) | payer MEDICARE, OTHER, SELFPAY ==
[2022-05-06 14:52] VITALS: BMI 26.5
--- NOTE | 2022-06-08 13:01 | DI.RAD.S_ITS ---
PROCEDURE: XR KNEE LT 3V INDICATIONS: LEFT KNEE PAIN TECHNIQUE: <3> views of the knee were acquired. COMPARISON: 12/23/2021 x-ray FINDINGS: Bones: Moderate osteoarthritis, most apparent in the medial and patellofemoral compartments. No acute fracture or dislocation. Soft tissues: Joint effusion. No suspicious calcifications. IMPRESSION: Moderate osteoarthritis. Moderate joint effusion. Dictated by: Joss Scherer M.D. on 06/08/2022 at 13:28 Approved by: Joss Scherer M.D. on 06/08/2022 at 13:29
== END ==
PROVIDERS: Family Provider Family Medicine; PCP Physician Assistant Medical; Referring Provider Physical Medicine & Rehabilitation; Visit Provider Physical Medicine & Rehabilitation
DX: M17.12 Unilateral primary osteoarthritis, left knee (principal); M25.462 Effusion, left knee; I69.320 Aphasia following cerebral infarction
CPT/HCPCS: 20611; 73562; 99214; J0702

== ENCOUNTER 2022-06-15 13:30 | Outpatient (RCR) | payer MEDICARE, OTHER, SELFPAY ==
[2022-05-06 14:52] VITALS: BMI 26.5
--- NOTE | 2022-05-26 11:19 | ST.OP.ACL ---
Visit Care Team Role Provider Type Leighann Lane PA-C Primary Care Provider Non-Staff Specialty: Medical Address: [address] [place] [address] [address], [place], [address] [address]: [address] MD Family Provider Non-Staff Specialty: Psychiatry Address: [address] [facility], [place], [address] Email: CLARISSA Mariano Attending Provider Non-Staff Referring Provider Specialty: Nursing Address: [address] [place], [place] 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 Adult Cognitive Linguistic Eval Start: 05/20/22 11:58 Freq: Status: Active Protocol: Document 05/20/22 11:59 MG (Rec: 05/20/22 13:21 MG [id number]) Adult Cognitive Linguistic Evaluation Session Time Visit Start Time 10:30 Visit Stop Time 11:35 Total Visit Minutes 90 Visit Information Visit Number 1 Plan of Care Dates 05/20/2022-10/20/2022 Insurance Information Medicare Referral Referring Provider Ann Awad Reason for Referral Aphasia due to CVA Setting Assessment Location Outpatient Care Visit Type Note Type Initial evaluation Next Note Type Next Note Type Treatment Note Patient Information Identification Type Name Patient History Marcie is an 81 year old female who presents today with aphasia secondary to her CVA on 05/06/2022. Marcie is from [facility] and her first language is Burundian. She lives at home with her . Per Marcie and her , they both report the biggest difference they have noticed since the CVA is Marcie's word finding abilities in communicating with others. Marcie reports that Burundian is easier for her to speak, but she has difficulties with word finding in Burundian as well. Marcie reports that she gets frustrated because she knows thinks of the word she wants to use, but can't remember it to use it. Language(s) Spoken in the Home Burundian, Chilean Hearing Hearing Level Normal Auditory History No noted concerns at this time . Vision Vision Status Impaired Comments Wears glasses Previous Therapy Previous Speech-Language Therapy Yes: Inpatient after stroke History of Therapy Marcie was recently at [facility] for her CVA and worked with the speech team at that time while she was inpatient status. Subjective Patient Report Pt was on with with her to her appointment. She participated well but appeared to fatigue during the assessment time. Mental Status Alert,Responsive,Cooperative Assessment Oral Motor Examination Completed Yes: Informal Results Informal OME reported function and strength WFL at this time . Informal Assessment Receptive Language Normal Yes: May have ELL impacts Receptive Language Impairment(s) Following 2-step commands, Following 3-step commands Expressive Language Normal No Expressive Language Impairment(s) Sentence closure/completion, Divergent naming,Expression of basic wants/needs,Expression of complex thoughts/ideas Pragmatic Language Normal Yes Speech Normal Yes Cognition Normal No Cognitive Impairment(s) Short-term memory,Thought organization Formal Assessment Standardized Test/Screener Type Scales of Cognitive and Communicative Ability (SCCAN) Administration Complete Results Scores should be interpreted with caution as these assessments are not normed for bilingual speakers with Chilean being their second language. Overall, Marcie shows strengths in orientation and speech comprehension. Her biggest weaknesses are oral expression and memory. This test rated her abilities to be a moderate impairment with a raw score of 49. Findings/Results Language Function Moderately impaired Cognitive Function Moderately impaired Findings Marcie presents with language deficits that impact her ability to effectively communicate with others as well as some memory impairments that affect short term recall. Cognitive Communication Deficits Self-awareness of Cognitive- Situational awareness ( Communication Deficits recognition of problem in context;in real time) Impact on Functioning Activity Limits/Particip.Rest. Mild: Community Mod: General Tasks and Demands Household Tasks Interpersonal Interactions Safety Risks Mild: Being Left Alone at Home Reacting to Emergency Managing Medication Traveling Alone in Community Prognosis Prognosis Good Based on Family support,Duration of symptoms/severity,Time since onset Plan of Care Speech-Language Treatment Yes Frequency 1x weekly Patient/Caregiver Education Described results of evaluation,Patient expressed understanding of evaluation, Patient expressed agreement with goals and treatment plans ,Family/caregivers expressed understanding of evaluation, Family/caregivers expressed agreement with goals and treatment plan Short Term Goals 1)Marcie and her family will participate in further education re: word finding, CVA and impacts to communication 2)Marcie will participate in memory strategies with 1 verbal cue. 3)Marcie will report using word finding strategies with 1 verbal cue. Long-Term Goals 1)Marcie will report using word finding and memory strategies independently. 2)Marcie will report a reduction of frustrations when communicating with others. Discharge Recommendations Home
--- NOTE | 2022-05-26 11:20 | ST.OPTN ---
Visit Care Team Role Provider Type Leighann Lane PA-C Primary Care Provider Non-Staff Address: [facility] [address], [place], [address] MD Family Provider Non-Staff Address: [address] [facility], [place], [address] CLARISSA Mariano Attending Provider Non-Staff Referring Provider Address: [facility] [address], [place], [address] SECRETARIAL STENOGRAPHER Treatment Note SECRETARIAL STENOGRAPHER Treatment Note Start: 05/20/22 11:58 Freq: Status: Active Protocol: Document 05/25/22 15:17 MG (Rec: 05/25/22 15:21 MG [id number]) Speech Pathology Treatment Note Session Time Visit Start Time 14:30 Visit Stop Time 15:15 Total Visit Minutes 45 Visit Information Visit Number 2 Plan of Care Dates 05/20/2022-10/20/2022 Setting Treatment Setting Outpatient Care Next Note Type Next Note Type Treatment Note General Information Patient History Marcie is an 81 year old female who presents today with aphasia secondary to her CVA on 05/06/2022. Marcie is from [facility] and her first language is Romanian. She lives at home with her . Per Marcie and her , they both report the biggest difference they have noticed since the CVA is Marcie's word finding abilities in communicating with others. Marcie reports that Romanian is easier for her to speak, but she has difficulties with word finding in Romanian as well. Marcie reports that she gets frustrated because she knows thinks of the word she wants to use, but can't remember it to use it. Subjective Identification Type Name Others Present Family Observations/Patient Presentation Marcie was on time accompanied by her to the session . She reported she was feeling tired today. Chief Complaint(s) Speech,Language,Cognitive Patient Knowledge/Awareness of SECRETARIAL STENOGRAPHER Role Good in Treatment Parent/Caretake Knowledge/Awareness of Good SECRETARIAL STENOGRAPHER Role in Treatment Patient/Caregiver Compliance with Home Good Exercise Program Objective Short Term Goals 1)Marcie and her family will participate in further education re: word finding, CVA and impacts to communication 2)Marcie will participate in memory strategies with 1 verbal cue. 3)Marcie will report using word finding strategies with 1 verbal cue. Chief Vendor Quality Goals 1)Marcie will report using word finding and memory strategies independently. 2)Marcie will report a reduction of frustrations when communicating with others. Treatment Activities Went over assessment findings, plan of care, and goals. Marcie and her were in agreement with the plan. Spent remainder of session discussing word finding strategies, effects of stroke and communication, and home practice plan. Of note, when SECRETARIAL STENOGRAPHER or used describing to help Marcie, she was more successful at saying the word she was looking for. Assessment Patient Response to Treatment Good Rehab Potential Good Impairments Identified Expressive language,Cognitive communication Progress Towards Goals Good Progress Assessment of Overall Progress Improving Assessment of Improvement Marcie is motivated and wanting to work in speech therapy and at home. Asked a lot about things at home to do to help her. Reviewed with Patient Goals,Progress Being Made,Home Exercise Program Patient/Caregiver Understanding Good Plan Amount of Therapy Recommended 6 Months Frequency of Treatment Once a Week Length of Session 45 Minutes Therapeutic Contents Cognitive-Linguistic Training, Expressive Language Training, Home Exercise Program Provided Patient/Caregiver Instruction Home Exercise Program,Plan of Care,Questions/Concerns Therapy Recommendations Continue with Current Program
--- NOTE | 2022-06-01 15:18 | ST.OPTN ---
Visit Care Team Role Provider Type Leighann Lane PA-C Primary Care Provider Non-Staff Address: [facility] [address], [place], [address] MD Family Provider Non-Staff Address: [address] [facility], [place], [address] CLARISSA Mariano Attending Provider Non-Staff Referring Provider Address: [facility] [address], [place], [address] POSTAL TRANSPORTATION CLERK Treatment Note POSTAL TRANSPORTATION CLERK Treatment Note Start: 05/20/22 11:58 Freq: Status: Active Protocol: Document 06/01/22 15:14 BARBIEK (Rec: 06/01/22 15:18 LNK [id number]) Speech Pathology Treatment Note Session Time Visit Start Time 14:30 Visit Stop Time 15:15 Total Visit Minutes 45 Visit Information Visit Number 3 Plan of Care Dates 05/20/2022-10/20/2022 Setting Treatment Setting Outpatient Care Next Note Type Next Note Type Treatment Note General Information Patient History Marcie is an 81 year old female who presents today with aphasia secondary to her CVA on 05/06/2022. Marcie is from [facility] and her first language is [place] Islander. She lives at home with her . Per Marcie and her , they both report the biggest difference they have noticed since the CVA is Marcie's word finding abilities in communicating with others. Marcie reports that [place] Islander is easier for her to speak, but she has difficulties with word finding in [place] Islander as well. Marcie reports that she gets frustrated because she knows thinks of the word she wants to use, but can't remember it to use it. Subjective Identification Type Name Others Present Family Observations/Patient Presentation Marcie was on time accompanied by her to the session . She reported she was feeling tired today. Chief Complaint(s) Speech,Language,Cognitive Patient Knowledge/Awareness of POSTAL TRANSPORTATION CLERK Role Good in Treatment Parent/Caretake Knowledge/Awareness of Good POSTAL TRANSPORTATION CLERK Role in Treatment Patient/Caregiver Compliance with Home Good Exercise Program Objective Short Term Goals 1)Marcie and her family will participate in further education re: word finding, CVA and impacts to communication 2)Marcie will participate in memory strategies with 1 verbal cue. 3)Sawein will report using word finding strategies with 1 verbal cue. Assisted Goals 1)Sawein will report using word finding and memory strategies independently. 2)Sawein will report a reduction of frustrations when communicating with others. Treatment Activities Continued discussing word finding strategies, effects of stroke and communication. Provided home practice plan ad worksheets. Marcie was tired by the end of the session. Assessment Patient Response to Treatment Good Rehab Potential Good Impairments Identified Expressive language,Cognitive communication Progress Towards Goals Good Progress Assessment of Overall Progress Improving Assessment of Improvement Marcie is motivated and wanting to work in speech therapy and at home. Asked a lot about things at home to do to help her. Reviewed with Patient Goals,Progress Being Made,Home Exercise Program Patient/Caregiver Understanding Good Plan Amount of Therapy Recommended 6 Months Frequency of Treatment Once a Week Length of Session 45 Minutes Therapeutic Contents Cognitive-Linguistic Training, Expressive Language Training, Home Exercise Program Provided Patient/Caregiver Instruction Home Exercise Program,Plan of Care,Questions/Concerns Therapy Recommendations Continue with Current Program
--- NOTE | 2022-06-15 15:29 | ST.OPTN ---
Visit Care Team Role Provider Type Leighann Lane PA-C Primary Care Provider Non-Staff Address: [facility] [address], [place], [address] MD Family Provider Non-Staff Address: [address] [facility], [place], [address] CLARISSA Mariano Attending Provider Non-Staff Referring Provider Address: [facility] [address], [place], [address] DEDICATED DRIVER Treatment Note DEDICATED DRIVER Treatment Note Start: 05/20/22 11:58 Freq: Status: Active Protocol: Document 06/15/22 15:14 LNK (Rec: 06/15/22 15:29 LNK [id number]) Speech Pathology Treatment Note Session Time Visit Start Time 14:30 Visit Stop Time 15:00 Total Visit Minutes 30 Visit Information Visit Number 4 Plan of Care Dates 05/20/2022-10/20/2022 Setting Treatment Setting Outpatient Care Next Note Type Next Note Type Treatment Note General Information Patient History Marcie is an 81 year old female who presents today with aphasia secondary to her CVA on 05/06/2022. Marcie is from [facility] and her first language is Peruvian. She lives at home with her . Per Marcie and her , they both report the biggest difference they have noticed since the CVA is Marcie's word finding abilities in communicating with others. Marcie reports that Peruvian is easier for her to speak, but she has difficulties with word finding in Peruvian as well. Marcie reports that she gets frustrated because she knows thinks of the word she wants to use, but can't remember it to use it. Subjective Identification Type Name Others Present Family Observations/Patient Presentation Marcie was on time accompanied by her (Preet) to the session. Chief Complaint(s) Speech,Language,Cognitive Patient Knowledge/Awareness of DEDICATED DRIVER Role Good in Treatment Parent/Caretake Knowledge/Awareness of Good DEDICATED DRIVER Role in Treatment Patient/Caregiver Compliance with Home Good Exercise Program Objective Short Term Goals 1)Marcie and her family will participate in further education re: word finding, CVA and impacts to communication 2)Marcie will participate in memory strategies with 1 verbal cue. 3)Marcie will report using word finding strategies with 1 verbal cue. Longterm Goals 1)Marcie will report using word finding and memory strategies independently. 2)Marcie will report a reduction of frustrations when communicating with others. Treatment Activities WFD activities targeted. Pt able to list names of children and grandchildren but could not tell me her 's name . Pt listed 10 animals with some difficulty. Strategy of picturing the zoo, farm, etc, she listed several more items. Pt fatigues easily Assessment Patient Response to Treatment Good Rehab Potential Good Impairments Identified Expressive language,Cognitive communication Progress Towards Goals Good Progress Assessment of Overall Progress Improving Assessment of Improvement Marcie reported that she feels there is some improvement in WFD. She is wanting to work in speech therapy. HEP provided to pt. and she indicated that they sita like to practice exercises and return in 3-4 weeks. Reviewed with Patient Goals,Progress Being Made,Home Exercise Program Patient/Caregiver Understanding Good Plan Amount of Therapy Recommended 6 Months Comment every 2-4 weeks Length of Session 45 Minutes Therapeutic Contents Cognitive-Linguistic Training, Expressive Language Training, Home Exercise Program Provided Patient/Caregiver Instruction Home Exercise Program,Plan of Care,Questions/Concerns Therapy Recommendations Continue with Current Program
== END 2022-07-27 12:53 ==
LOC: SP 13:30
PROVIDERS: Family Provider Family Medicine; PCP Physician Assistant Medical; Referring Provider Nurse Practitioner Family; Visit Provider Nurse Practitioner Family
DX: I69.920 Aphasia following unspecified cerebrovascular disease (principal); I63.239 Cerebral infarction due to unspecified occlusion or stenosis of unspecified carotid artery
CPT/HCPCS: 92507; 96125

== ENCOUNTER → 2022-09-08 10:48 | Outpatient (CLI) | payer MEDICARE, OTHER, SELFPAY ==
[2022-05-06 14:52] VITALS: BMI 26.5
--- NOTE | 2022-09-08 | DI.CT.S_ITS ---
PROCEDURE: CT ABDOMEN PELVIS W CON INDICATIONS: Early satiety TECHNIQUE: After the administration of intravenous contrast, axial sections acquired from the lung bases to the pubic symphysis. Coronal and sagittal reformats were performed. For radiation dose reduction, the following was used: automated exposure control, adjustment of mA and/or kV according to patient size. COMPARISON: None. FINDINGS: Lower thorax: The lung bases are clear. Heart size normal. No hiatal hernia. Liver: Normal in size and attenuation. No contour deformity present. Biliary system: No calcified cholelithiasis or pericholecystic inflammation. No intra or extrahepatic bile duct dilatation. Pancreas: Unremarkable without mass or inflammation evident. Spleen: Normal in size and density. Adrenals: Normal morphology and density. Reproductive system: Unremarkable as visualized. Urinary system: Normal renal size and attenuation. Left peripelvic cysts noted No renal calculi, hydronephrosis, or solid mass present. Urinary bladder unremarkable. Gastrointestinal system: The bowel is unremarkable without evidence of bowel obstruction or inflammation. The stomach appears unremarkable. Multiple diverticula arise from the entire colon without evidence of diverticulitis. Appendix: No findings to suggest acute appendicitis. Peritoneal spaces: No mesenteric or retroperitoneal adenopathy. No free air. No free fluid. Vasculature: The IVC, aorta and iliac vasculature are unremarkable. Abdominal wall: Abdominal wall intact without evidence of ventral or inguinal hernias. Musculoskeletal: Normal bone mineralization. Degenerative disc disease and arthropathy noted in lower lumbar spine. 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 A T12 wedge-shaped compression fracture present with 75 percent anterior height loss. IMPRESSION: 1. Diverticulosis throughout the colon associated with moderate fecal debris in the right colon. No obstruction. 2. 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 T12 compression fracture, uncertain age Approved by: Rob Hamilton M.D. on 09/08/2022 at 18:35
[2022-09-08 12:43] LABS: BUN Creatinine Ratio 20.5 (6-22); Blood Urea Nitrogen 25 mg/dL (7-17); Estimated Glomerular Filt Rate 45 mL/min (>60)
== END ==
PROVIDERS: Family Provider Family Medicine; PCP Physician Assistant Medical; Referring Provider Internal Medicine Gastroenterology; Visit Provider Internal Medicine Gastroenterology
DX: K59.00 Constipation, unspecified (principal); K57.90 Diverticulosis of intestine, part unspecified, without perforation or abscess without bleeding; R68.81 Early satiety; R10.13 Epigastric pain; M51.36 Other intervertebral disc degeneration, lumbar region; M48.54XA Collapsed vertebra, not elsewhere classified, thoracic region, initial encounter for fracture
CPT/HCPCS: 36415; 74177; 82565; 84520; Q9967

== ENCOUNTER → 2023-07-31 15:06 | Outpatient (CLI) | payer MEDICARE, OTHER, SELFPAY ==
[2022-05-06 14:52] VITALS: BMI 26.5
--- NOTE | 2023-07-31 15:08 | DI.RAD.S_ITS ---
PROCEDURE: XR CERVICAL SPINE 4V OR 5V INDICATIONS: Neck pain with right upper extremity symptoms TECHNIQUE: 5 views of the cervical spine acquired. COMPARISON: None. FINDINGS: Bones: No fractures or dislocations to the T1 level. Degenerative endplate changes are noted throughout cervical spine. 2 mm anterolisthesis of C3 on C4 and 3 mm anterolisthesis of C4 on C5 is seen. Oblique images demonstrate bilateral bony foraminal stenosis at C5-6 level. Soft tissues: No prevertebral soft tissue swelling. IMPRESSION: Likely degenerative anterolisthesis at C3-4 and C4-5 levels as above. No acute fracture or dislocation. Degenerative disc disease throughout cervical spine with bilateral bony foraminal stenosis at C5-6 level. Dictated by: Cristobal Patten M.D. on 07/31/2023 at 16:59 Approved by: Cristobal Patten M.D. on 07/31/2023 at 17:00
== END ==
PROVIDERS: Family Provider Family Medicine; PCP Physician Assistant Medical; Referring Provider Physical Medicine & Rehabilitation; Visit Provider Physical Medicine & Rehabilitation
DX: M50.10 Cervical disc disorder with radiculopathy, unspecified cervical region (principal); M48.02 Spinal stenosis, cervical region; I69.320 Aphasia following cerebral infarction; M17.12 Unilateral primary osteoarthritis, left knee; M25.462 Effusion, left knee
CPT/HCPCS: 20611; 72050; 99214; J7318

== ENCOUNTER 2023-09-14 10:56 | Emergency (ER) | payer MEDICARE, OTHER, SELFPAY ==
[2022-05-06 14:52] VITALS: BMI 26.5
[2023-09-14] VITALS (9 sets, daily range): BP systolic 143–186; BP diastolic 64–79; PULSE 51–63; RESP 14–24; TEMP 36.6; O2SAT 98–100; BMI 25.2
--- NOTE | 2023-09-14 11:13 | DI.RAD.S_ITS ---
PROCEDURE: XR CHEST 1V INDICATIONS: chest pain TECHNIQUE: One view of the chest was acquired. COMPARISON: None. FINDINGS: Surgical changes and devices: None. Lungs and pleura: Lungs are clear. No pleural effusions or pneumothorax. Mediastinum: Mediastinal contours appear normal. Heart size is normal. Bones and chest wall: No suspicious bony lesions. Overlying soft tissues appear unremarkable. IMPRESSION: No acute cardiopulmonary pathology. Dictated by: Cristobal Patten M.D. on 09/14/2023 at 11:40 Approved by: Cristobal Patten M.D. on 09/14/2023 at 11:40
[2023-09-14 11:21] LABS: Add Manual Diff / Slide Review NO; Basophils Absolute Auto 0 /uL (0-100); Basophils Percent Auto 0.7 % (0-2); Eosinophils Absolute Auto 100 /uL (0-450); Eosinophils Percent Auto 2.3 % (2-4); Hematocrit 34.2 % (36-46); Hemoglobin 11.1 g/dL (12.0-16.0); Lymphocytes Absolute Auto 1600 /uL (1100-4500); Lymphocytes Percent Auto 28.4 % (25-40); Mean Corpuscular HGB Conc 32.5 % (30-36); Mean Corpuscular Hemoglobin 27.5 PG (26-34); Mean Corpuscular Volume 84.6 fL (80-100); Monocytes Absolute Auto 400 /uL (0-900); Neutrophils Absolute Auto 3600 /uL (1500-7000); Neutrophils Percent Auto 61.6 % (50-75); Platelet Count 210 X10^3/uL (150-400); Red Blood Cell Count 4.04 X10^6/uL (4.0-5.2); Red Cell Distribution Width 13.6 % (11.6-14.8); White Blood Cell Count 5.8 X10^3/uL (4.5-11.0)
--- NOTE | 2023-09-14 11:24 | ED_ITS ---
HPI - Dizziness General Chief Complaint: Dizziness Stated Complaint: sent by [facility] /dizzy/weak/D Time Seen by Provider: 09/14/23 11:07 Source: patient Mode of arrival: Ambulatory History of Present Illness HPI Narrative: Patient is a 82-year-old female history of hypertension CVA presents today with dizziness and weakness. Difficult to get some history at bedside sounds like she has been dizzy with difficulty walking for the last couple of days today was much worse. No fever or chills. Complaining of what headache more on the right side. No numbness tingling weakness facial droop or difficulty speaking. She denies any chest pain or palpitations. Reports that she just does not feel quite right. She does complain some mild nausea but actual vomiting. She was admitted in 2021 for CVA. At that time she was discharged aspirin Plavix and atorvastatin. Related Data Home Medications Medication Instructions Recorded Confirmed vitamin B complex 1 tab PO DAILY 11/10/20 07/31/23 cholecalciferol (vitamin D3) 125 125 mcg PO DAILY 03/04/22 07/31/23 mcg (5,000 unit) capsule meclizine 25 mg tablet 25 mg PO .PRN 06/08/22 07/31/23 magnesium 250 mg tablet 250 mg PO DAILY 10/05/22 07/31/23 pantoprazole 40 mg tablet,delayed 40 mg PO DAILY 10/05/22 07/31/23 release rosuvastatin 10 mg tablet 10 mg PO DAILY 10/05/22 07/31/23 thiamine HCl (vitamin B1) 100 mg 100 mg PO DAILY 10/05/22 07/31/23 tablet desonide 0.05 % topical cream 1 applic topical BEDTIME 04/19/23 07/31/23 fluoride (sodium) 1.1 % dental 1 applic PO DAILY 04/19/23 07/31/23 cream (PreviDent 5000 Plus) gabapentin 100 mg capsule 100 mg PO BEDTIME 04/19/23 07/31/23 tolterodine 4 mg capsule,extended 4 mg PO DAILY 04/19/23 07/31/23 release 24 hr telmisartan 80 mg tablet 80 mg PO DAILY 07/31/23 07/31/23 Previous Rx's Medication Instructions Recorded aspirin 81 mg tablet,delayed 81 mg PO DAILY #30 tabs 05/09/22 release meclizine 25 mg tablet 25 mg PO TID PRN dizziness #10 tabs 09/14/23 Allergies Allergy/AdvReac Type Severity Reaction Status Date / Time No Known Drug Allergies Allergy Verified 09/14/23 11:20 Patient History Medical History Cervical radiculopathy Knee effusion, left CVA, old, aphasia Left knee DJD Surgical History H/O section H/O removal of cyst Family History Other No pertinent family history Social History household members: spouse Smoking Status: Never smoker alcohol intake: current Smoking Status: Never smoker alcohol intake frequency: 0-2 drinks per day Substance Use Type: does not use Exam Initial Vital Signs Initial Vital Signs: Vital Signs Pulse Rate 56 L 09/14/23 11:11 Respiratory Rate 24 09/14/23 11:11 Pulse Oximetry 100 09/14/23 11:11 GENERAL: Alert pleasant 82-year-old and in no acute distress. HEENT: Head atraumatic,EOMI, pupils reactive, face symmetric, moist mucous membranes CARDIOVASCULAR: Regular rate and rhythm without murmurs, rubs or gallops. RESPIRATORY: Breath sounds equal bilaterally, no wheezes rales or rhonchi. ABDOMEN: Soft, nontender. Normoactive bowel sounds all 4 quadrants. No guarding or rebound. EXTREMITIES: Normal range of motion, no clubbing or edema. Neurovascularly intact NEUROLOGICAL: Alert and oriented x4.Normal gait and speech. Cranial nerves II through XII grossly intact. Good vtgowg-xh-eunn, good ojhu-ig-pcxo, strength equal bilaterally, no dysarthria or aphasia, sensation in tact to soft touch bilaterally, no visual changes, no facial droop SKIN: Warm, dry, no laceration, no petechiae, no rashes or lesions. Scores NIH Stroke Scale Level of Conciousness: Alert, keenly responsive Ask month/age: Answers both questions correctly. Open/close eyes, close hand: Performs both tasks correctly Best gaze horizontal: Normal Visual nava: No visual loss Facial palsy: Normal symetrical movement Left arm drift: No drift for full 10 sec Right arm drift: No drift for full 10 sec Left leg drift: No drift for full 5 sec Right leg drift: No drift for full 5 sec Limb ataxia: Absent Sensory on face/arms/legs: Normal, no sensory loss Best language: No aphasia, normal Dysarthria: Normal Extinction or inattention: No abnormality Total NIH Stroke scale score: 0 Course Orders Ordered: ED Orders 09/14/23 11:08 Complete Blood Count AUTO DIFF Stat Comprehensive Metabolic Panel Stat Lipase Stat Magnesium Stat PTT Partial Thromboplastin Kirk Stat Prothrombin Time INR Stat Troponin & CK Cardiac Panel Stat 09/14/23 11:13 XR chest 1V Stat EKG-12 Lead Stat 09/14/23 12:02 CT angio head and neck Stat Discontinued Medications Aspirin (Aspirin 81 Mg Chew Tab) 324 mg PO NOW ONE Stop: 09/14/23 11:14 Last Admin: 09/14/23 12:29 Dose: Not Given Documented By: ANNITA Sodium Chloride (Normal Saline 0.9%) 1,000 mls @ 1,000 mls/hr IV BOLUS ONE Stop: 09/14/23 13:01 Last Infusion: 09/14/23 13:36 Dose: Infused Documented By: Admin: 09/14/23 12:17 Dose: 1,000 mls/hr Documented By: ANNITA Meclizine HCl (Meclizine Hcl 12.5 Mg Tablet) 25 mg PO NOW ONE Stop: 09/14/23 12:03 Last Admin: 09/14/23 12:18 Dose: 25 mg Documented By: ANNITA Vital Signs Vital signs: Vital Signs - 8 hr 09/14/23 11:11 09/14/23 11:12 09/14/23 11:12 Temperature Pulse Rate 56 L 57 L Respiratory Rate 24 19 Blood Pressure 145/67 H Pulse Oximetry 100 100 Oxygen Delivery Method Room Air 09/14/23 11:13 09/14/23 11:30 09/14/23 11:30 Temperature 97.8 F Pulse Rate 59 L 55 L Respiratory Rate 20 15 Blood Pressure 186/79 H 160/68 H Pulse Oximetry 100 100 Oxygen Delivery Method Room Air 09/14/23 12:00 09/14/23 12:00 09/14/23 12:17 Temperature Pulse Rate 51 L Respiratory Rate 15 Blood Pressure 143/64 H 164/67 H Pulse Oximetry 100 Oxygen Delivery Method 09/14/23 12:17 09/14/23 12:30 09/14/23 12:30 Temperature Pulse Rate 61 61 Respiratory Rate 16 14 Blood Pressure 151/67 H Pulse Oximetry 98 99 Oxygen Delivery Method 09/14/23 13:03 09/14/23 13:30 Temperature Pulse Rate 59 L 63 Respiratory Rate 17 Blood Pressure Pulse Oximetry 98 99 Oxygen Delivery Method MDM - Dizziness Lab Data 09/14/23 11:08 09/14/23 11:08 Labs: Lab Results 09/14/23 Range/Units 11:08 WBC 5.8 (4.5-11.0) X10^3/uL RBC 4.04 (4.0-5.2) X10^6/uL Hgb 11.1 L (12.0-16.0) g/dL Hct 34.2 L (36-46) % MCV 84.6 (80-100) fL MCH 27.5 (26-34) PG MCHC 32.5 (30-36) % RDW 13.6 (11.6-14.8) % Plt Count 210 (150-400) X10^3/uL Neut % (Auto) 61.6 (50-75) % Lymph % (Auto) 28.4 (25-40) % [place] % (Auto) 7.0 (3-14) % Eos % (Auto) 2.3 (2-4) % Baso % (Auto) 0.7 (0-2) % Neut # (Auto) 3600 (6428-6539) /uL Lymph # (Auto) 1600 (3494-6877) /uL [place] # (Auto) 400 (0-900) /uL Eos # (Auto) 100 (0-450) /uL Baso # (Auto) 0 (0-100) /uL PT 12.1 (10.1-12.7) SECONDS INR 1.1 (0.9-1.3) APTT 31 (26-36) SECONDS Sodium 136 L (137-145) mmol/L Potassium 4.1 (3.4-5.1) mmol/L Chloride 102 (98-107) mmol/L Carbon Dioxide 29 (22-32) mmol/L BUN 30 H (7-17) mg/dL Creatinine 1.46 H (0.52-1.04) mg/dL Estimated GFR 36 L (>60) mL/min BUN/Creatinine Ratio 20.5 (6-22) Glucose 109 (80-110) mg/dL Calcium 9.4 (8.4-10.2) mg/dL Magnesium 2.7 H (1.6-2.3) mg/dL Total Bilirubin 0.4 (0.2-1.3) mg/dL AST 29 (14-36) IU/L ALT 27 (<35) IU/L Alkaline Phosphatase 71 (38-126) U/L Total Creatine Kinase 52 (30-135) U/L Troponin I < 0.012 (0.01-0.034) ng/mL Total Protein 7.2 (6.3-8.2) g/dL Albumin 4.2 (3.5-5.0) g/dL Globulin 3.0 (1.7-4.1) g/dL Albumin/Globulin Ratio 1.4 (1.0-2.8) Lipase 229 (23-300) U/L Imaging Data CTA - brain/neck: Radiologist's Impression: PROCEDURE: CT ANGIO HEAD AND NECK INDICATIONS: dizzy TECHNIQUE: After the administration of intravenous contrast, 1 mm thick sections acquired from the aortic arch through the [place]. 3-dimensional tzbkspa-hxijccrwd-kbhyniqbll (MIP) and/or volume rendering reformats were acquired of the central intracranial vasculature and neck separately. For radiation dose reduction, the following was used: automated exposure control, adjustment of mA and/or kV according to patient size. COMPARISON: [facility], CT, CT ANGIO HEAD AND NECK, 05/06/2022, 11:53. FINDINGS: Image quality: Diagnostic. BRAIN: CSF spaces: Ventricles are normal in size and shape. Basal cisterns are patent. No extra-axial fluid collections. Brain: No significant abnormality of the brain can be seen. Skull and face: Calvarium and facial bones appear intact, without suspicious lesions. Orbits appear normal. Sinuses: Sinuses and mastoids are clear. HEAD CT ANGIOGRAPHY: Anterior circulation: Intracranial internal carotid arteries are normal in size and flow. The flow within the paired anterior cerebral arteries is normal and symmetric. The flow within the middle cerebral arteries is normal and symmetric. The anterior communicating artery is seen. No aneurysms are seen. Posterior circulation: Distal right vertebral artery is diffusely diminutive. Distal left vertebral artery is widely patent. They join to form a normal caliber basilar artery. Flow within the posterior cerebral arteries is normal and symmetric. No aneurysms are seen. NECK CT ANGIOGRAPHY: Carotid system: The great vessels demonstrate a conventional anatomy as they arise from the aortic arch. The origins of the common carotid arteries appear patent. The common carotid arteries demonstrate normal caliber and courses. The bifurcation regions demonstrate mild plaque without stenosis. There is no significant stenosis of the proximal internal carotid arteries. Posterior circulation: Normal caliber, dominant left vertebral artery. Normal variant diffusely diminutive right vertebral artery. They join to form a normal appearing basilar artery. Soft tissues: Visualized neck soft tissues demonstrate no suspicious abnormalities. Bones: No suspicious bony lesions. Visualized cervical spine appears normally aligned. IMPRESSION: 1. Unremarkable CTA head. No stenosis, aneurysm, occlusion, or focal filling defect. 2. No significant carotid stenosis. Any quantitative measurements of stenosis were performed using NASCET criteria. Dictated by: Ananth Haines M.D. on 09/14/2023 at 12:29 ECG Data Interpretation: Sinus rhythm rate 57 VT interval 166 QRS [address] changes MDM Narrative Medical decision making narrative: Patient is an 82-year-old female history of CVA presenting with dizziness and weakness. However she is able to ambulate in the ED she has no nausea or vomiting her stroke scale is 0 she is no nystagmus. CT angio does not show any large vessel occlusion. I have a low suspicion for posterior stroke she is feeling better after meclizine. She is taking dual antiplatelet medication along with atorvastatin. She overall appears comfortable. Blood work has been reviewed, renal function is slightly up today 1.46 previously 1.22 does not show any abnormality. No fever evidence of infection or sepsis. Discharge Plan Departure Patient Disposition: Home Clinical Impression: Vertigo Instructions: DI for Vertigo Activity Restrictions/Additional Instructions: *You have been diagnosed with vertigo *What to do: At this time CT scan and blood work overall reassuring. Increase fluids rest hopefully you start feeling better *Continue to take medications as directed Meclizine 25 mg 3 times a day if needed for over dizziness--> [facility] in [place] *Follow up with your primary care provider in 2-3 days or call [phone] *Return to ER if you should have increasing dizziness weakness falls confusion or any new, worsening or concerning symptoms Prescriptions: New meclizine 25 mg tablet 25 mg PO TID PRN (Reason: dizziness) Qty: 10 0RF No Action aspirin 81 mg Tablet,Delayed Release (Dr/Ec) 81 mg PO DAILY Qty: 30 0RF cholecalciferol (vitamin D3) 125 mcg (5,000 unit) capsule 125 mcg PO DAILY meclizine 25 mg tablet 25 mg PO .PRN Patient Comments: TAKE ONE TABLET BY MOUTH THREE TIMES DAILY NEEDED for dizziness vitamin B complex Tablet 1 tab PO DAILY rosuvastatin 10 mg tablet 10 mg PO DAILY pantoprazole 40 mg tablet,delayed release (DR/EC) 40 mg PO DAILY thiamine HCl (vitamin B1) 100 mg tablet 100 mg PO DAILY magnesium 250 mg tablet 250 mg PO DAILY telmisartan 80 mg tablet 80 mg PO DAILY gabapentin 100 mg capsule 100 mg PO BEDTIME tolterodine 4 mg capsule,extended release 24hr 4 mg PO DAILY desonide 0.05 % cream 1 applic topical BEDTIME fluoride (sodium) [PreviDent 5000 Plus] 1.1 % cream 1 applic PO DAILY Referrals: Leighann Lane PA-C [Primary Care Provider] - Stand Alone Forms: Patient Portal/API
[2023-09-14 11:27] LABS: PTT Partial Thromboplastin Tim 31 SECONDS (26-36)
[2023-09-14 11:29] LABS: Alanine Aminotransferase 27 IU/L (<35); Albumin 4.2 g/dL (3.5-5.0); Albumin Globulin Ratio 1.4 (1.0-2.8); Alkaline Phosphatase 71 U/L (38-126); Aspartate Aminotransferase 29 IU/L (14-36); BUN Creatinine Ratio 20.5 (6-22); Bilirubin Total 0.4 mg/dL (0.2-1.3); Blood Urea Nitrogen 30 mg/dL (7-17); Calcium 9.4 mg/dL (8.4-10.2); Carbon Dioxide 29 mmol/L (22-32); Chloride 102 mmol/L (98-107); Creatine Kinase 52 U/L (30-135); Estimated Glomerular Filt Rate 36 mL/min (>60); Glucose 109 mg/dL (80-110); HEMOLYSIS 27 (0-50); Lipase 229 U/L (23-300); Magnesium 2.7 mg/dL (1.6-2.3); Potassium 4.1 mmol/L (3.4-5.1); Sodium 136 mmol/L (137-145); Total Protein 7.2 g/dL (6.3-8.2)
[2023-09-14 11:40] LABS: INR 1.1 (0.9-1.3); Prothrombin Time 12.1 SECONDS (10.1-12.7); Troponin I < 0.012 ng/mL (0.01-0.034)
--- NOTE | 2023-09-14 12:02 | DI.CT.S_ITS ---
PROCEDURE: CT ANGIO HEAD AND NECK INDICATIONS: dizzy TECHNIQUE: After the administration of intravenous contrast, 1 mm thick sections acquired from the aortic arch through the [place]. 3-dimensional mjzkxko-gkapoxcks-nrbkpembig (MIP) and/or volume rendering reformats were acquired of the central intracranial vasculature and neck separately. For radiation dose reduction, the following was used: automated exposure control, adjustment of mA and/or kV according to patient size. COMPARISON: [facility], CT, CT ANGIO HEAD AND NECK, 05/06/2022, 11:53. FINDINGS: Image quality: Diagnostic. BRAIN: CSF spaces: Ventricles are normal in size and shape. Basal cisterns are patent. No extra-axial fluid collections. Brain: No significant abnormality of the brain can be seen. Skull and face: Calvarium and facial bones appear intact, without suspicious lesions. Orbits appear normal. Sinuses: Sinuses and mastoids are clear. HEAD CT ANGIOGRAPHY: Anterior circulation: Intracranial internal carotid arteries are normal in size and flow. The flow within the paired anterior cerebral arteries is normal and symmetric. The flow within the middle cerebral arteries is normal and symmetric. The anterior communicating artery is seen. No aneurysms are seen. Posterior circulation: Distal right vertebral artery is diffusely diminutive. Distal left vertebral artery is widely patent. They join to form a normal caliber basilar artery. Flow within the posterior cerebral arteries is normal and symmetric. No aneurysms are seen. NECK CT ANGIOGRAPHY: Carotid system: The great vessels demonstrate a conventional anatomy as they arise from the aortic arch. The origins of the common carotid arteries appear patent. The common carotid arteries demonstrate normal caliber and courses. The bifurcation regions demonstrate mild plaque without stenosis. There is no significant stenosis of the proximal internal carotid arteries. Posterior circulation: Normal caliber, dominant left vertebral artery. Normal variant diffusely diminutive right vertebral artery. They join to form a normal appearing basilar artery. Soft tissues: Visualized neck soft tissues demonstrate no suspicious abnormalities. Bones: No suspicious bony lesions. Visualized cervical spine appears normally aligned. IMPRESSION: 1. Unremarkable CTA head. No stenosis, aneurysm, occlusion, or focal filling defect. 2. No significant carotid stenosis. Any quantitative measurements of stenosis were performed using NASCET criteria. Dictated by: Ananth Haines M.D. on 09/14/2023 at 12:29 Approved by: Ananth Haines M.D. on 09/14/2023 at 12:32
[2023-09-14] MEDS: SODIUM CHLORIDE 0.9% 1,000 ML 1000 ML IV (12:17)
[2023-09-14] MEDS: MECLIZINE HCL 12.5 MG TABLET 25 MG PO (12:18)
== END 2023-09-14 13:58 | disposition home or self-care (01) ==
PROVIDERS: Emergency Provider Emergency Medicine; Family Provider Family Medicine; PCP Physician Assistant Medical
DX: R42 Dizziness and giddiness (principal); R53.1 Weakness; R07.9 Chest pain, unspecified; Z79.899 Other long term (current) drug therapy
CPT/HCPCS: 36415; 70496; 70498; 71045; 80053; 82550; 83690; 83735; 84484; 85025; 85610; 85730; 93005; 93010; 96360; 99284; Q9967

== ENCOUNTER → 2023-11-02 15:48 | Outpatient (CLI) | payer MEDICARE, OTHER, SELFPAY ==
[2022-05-06 14:52] VITALS: BMI 26.5
--- NOTE | 2023-11-02 15:50 | DI.MRI.S_ITS ---
PROCEDURE: MR CERVICAL SPINE WO CON INDICATIONS: Right greater than left axial neck pain TECHNIQUE: Noncontrast sagittal T1 spin echo and T2 fast spin echo, sagittal STIR, foraminal oblique sagittal T2 fast spin echo, and axial gradient echo or T2 fast spin echo through the cervical spine. COMPARISON: None. FINDINGS: Image quality: Excellent. Alignment and Curvature: There is normal bony alignment. Bone Marrow: Marrow demonstrates normal overall signal. Spinal Cord: Visualized spinal cord has normal size and signal. No cerebellar tonsillar herniation. Paraspinous Soft Tissues: No paravertebral masses. Prevertebral soft tissues are normal in thickness. C2-C3: No canal stenosis or foraminal stenosis. C3-C4: Disc bulge abutting the cord. AP diameter of the central canal is 8.5 mm. Right facet hypertrophy. Moderate right foraminal narrowing. Left foramen is patent. C4-C5: Disc bulge. There is indentation on the ventral cord. Posterior ligamentous hypertrophy. AP diameter of the central canal is 8.1 mm. Exuberant right facet hypertrophy. Left facet hypertrophy as well. Bilateral uncovertebral joint hypertrophy. Severe right foraminal narrowing with right foraminal C5 nerve root impingement. Mild to moderate left foraminal narrowing. C5-C6: AP diameter of the central canal is 9.1 mm. Bilateral facet hypertrophy. Moderate to severe left foraminal narrowing with a degree of left foraminal C6 nerve root impingement. C6-C7: Chronic disc height loss. Diffuse posterior disc plus osteophyte. Indentation on the cord. Central canal is 7.4 mm. There is bilateral uncovertebral joint hypertrophy. There is severe right foraminal narrowing and marked left foraminal narrowing with bilateral foraminal C7 nerve root impingement. C7-T1: Trace anterolisthesis of C7 on T1. Disc bulge. Bilateral facet hypertrophy. Aqqy-po-tethynzt right foraminal narrowing. Moderate left foraminal narrowing. IMPRESSION: 1. There is diffuse cervical spondylitic change. 2. There is canal stenosis from C3-C4 through C6-C7. Canal stenosis is moderate at C3-C4, moderate to severe at C4-C5, mild at C5-C6, and severe at C6-C7. 3. Multilevel foraminal narrowing as described above. Findings include severe right foraminal narrowing at C4-C5, moderate to severe left foraminal narrowing at C5-C6, and severe right foraminal narrowing plus marked left foraminal narrowing at C6-C7. Dictated by: Ananth Haines M.D. on 11/02/2023 at 17:12 Approved by: Ananth Haines M.D. on 11/02/2023 at 17:22
== END ==
PROVIDERS: PCP Physician Assistant Medical; Referring Provider Physical Medicine & Rehabilitation; Visit Provider Physical Medicine & Rehabilitation
DX: M47.22 Other spondylosis with radiculopathy, cervical region (principal); M48.02 Spinal stenosis, cervical region
CPT/HCPCS: 72141

== ENCOUNTER → 2023-11-05 10:57 | Outpatient (CLI) | payer MEDICARE, OTHER, SELFPAY ==
[2022-05-06 14:52] VITALS: BMI 26.5
[2023-11-05 11:44] LABS: Influenza A - CEPHEID Flu A NEGATIVE (NEGATIVE); Influenza B - CEPHEID Flu B NEGATIVE (NEGATIVE); Respiratory Syncytial Virus Negative (Negative)
[2023-11-05 11:49] LABS: COVID-19 CEPHEID 4-PLEX PCR Negative (Negative)
== END ==
PROVIDERS: PCP Physician Assistant Medical; Visit Provider Physician Assistant Medical
DX: R50.9 Fever, unspecified (principal)
CPT/HCPCS: 0241U

== ENCOUNTER 2023-11-21 08:39 | Outpatient (CLI) | payer MEDICARE, OTHER, SELFPAY ==
[2022-05-06 14:52] VITALS: BMI 26.5
[2023-11-21] VITALS (8 sets, daily range): BP systolic 145–206; BP diastolic 70–98; PULSE 67–77; RESP 15–23; TEMP 36.2; O2SAT 98–100
--- NOTE | 2023-11-21 09:45 | DI.RAD.S_ITS ---
PROCEDURE: PAIN C/T INTERLAMINAR INJECT INDICATIONS: RADICULOPATHY COMPARISON: None. FINDINGS: Fluoroscopic spot filming was performed to verify placement of an epidural needle at the C6-C7 level(s), as labeled on the films. IMPRESSION: Fluoroscopic imaging provided for cervical epidural steroid injection performed by the interventional pain physician. Dictated by: Ananth Haines M.D. on 11/21/2023 at 16:39 Approved by: Ananth Haines M.D. on 11/21/2023 at 16:55
[2023-11-21] MEDS: MIDAZOLAM 2 MG/2 ML VIAL IV (10:00)
[2023-11-21] MEDS: iopamidoL 15 ML VIAL 3 ML INJ (10:03)
[2023-11-21] MEDS: BUPIVACAINE 0.25% (PF) VIAL 2 ML INJ (10:03)
[2023-11-21] MEDS: DEXAMETHASONE 10 MG/ML VIAL 20 MG INJ (10:04)
--- NOTE | 2023-11-21 10:15 | P.PCN_ITS ---
Date/Time/Diagnoses Date of procedure: 11/21/23 Time of procedure: 10:16 Pre-procedure diagnosis: 1. CERVICAL STENOSIS, 2. CERVICAL HNP WITH UPPER EXTREMITY RADICULAR FEATURES Post-procedure diagnosis: same Procedure Notes Procedure: 1. FLUORSCOPICALLY GUIDED CONTRAST CONTROLLED INTERLAMINAR EPIDURAL STEROID INJECTION - C6/7 TL CANDELARIO Indications: Marcie is referred by ARELI Lane for treatment of Cervical HNP with Upper Extremity Paresthesias. Physician: Ayden Ríos Total Fluoroscopy time (seconds): 38 Total sedation minutes: 13 Complications: none Procedure in detail & Post-procedure care: FINDINGS Cervical Stenosis due to disc deterioration and nerve root irritation and nerve root irritation DESCRIPTION OF PROCEDURE Fluoroscopically guided, contrast-controlled C6/7 translaminar epidural steroid injection with conscious sedation. Following review of allergy and review of potential side effects and complications, including, but not necessarily limited to, infection, allergic reaction, local tissue breakdown, temporary as well as permanent nerve injury, stroke, paralysis, and possible , the patient indicated that patient understood and agreed to proceed. An informed consent document was signed by the patient, witnessed by a nurse, and placed in the patient's chart. Additionally, other treatment options including modalities, medications, and physical therapy were reviewed with the patient. After review of previous anaesthesic history and IV conscious sedation the patient was deemed safe to proceed with today?s procedure with IV conscious sedation as ASA class II designation. Safety time-out was performed to confirm patient ID, procedure to be performed and site of procedure. IV sedation was accomplished with a combination of 2mg of Versed administered by the RN after DO order, titrated to patient comfort during the course of the procedure while the patient remained responsive to all verbal commands. In the prone position, following sterile prep and drape of the cervical region, the C6/7 translaminar space was identified fluoroscopically. The skin was anesthetized via a 25-gauge 1.5-inch needle with 1% lidocaine solution. At this point, a 25-gauge, 2.5-inch short bevel spinal needle was atraumatically introduced and advanced under fluoroscopic guidance into epidural space at the C6/7 translaminar space. Depth was confirmed on lateral view. Radiological data, including multiple fluoroscopic views of the cervical spine, reveal a spinal needle at the C6/7 translaminar space. Lateral views then show placement of the needle in the epidural space. Subsequent views show contrast material flowing superiorly and inferiorly in the epidural space. DSA fluoroscopy with live contrast injection, once again, confirmed no vascular or intrathecal uptake. At this point, using loss of resistance technique with saline and air, the epidural space was entered. Following negative aspiration, injection of approximately 1.5 cc of Isovue-200 with live fluoroscopy in the AP view confirmed epidural flow in the epidural space without vascular or intrathecal uptake observed. Subsequently, a test dose of 1 cc of 1% lidocaine solution was injected and patient was observed for two minutes without signs or symptoms of complications, including abdominal pain, shortness of breath, bilateral upper or lower extremity weakness, nausea and vomiting, prior to steroid injection. At this point, 2cc or 20mg of dexamethasone was then injected without incident. The patient tolerated the procedure well without signs or symptoms of compli cations prior to being transferred to the recovery area for further monitoring, The patient was then transferred to the recovery area where they were observed for an appropriate period of time after the injection. The patient reported a VAS score of 6 prior to the procedure and a post-procedure VAS of 0. POST OP INSTRUCTIONS The patient was provided a Pain Log to continue to record their response to the target-specific procedure prior to follow-up visit with the referring provider. Additionally, specific post-injection care instructions and a contact number to our office were provided if concerns arise regarding possible complications associated with the procedure are suspected.
--- NOTE | 2023-11-22 11:00 | PC.NURSE ---
Procedure follow up call: Spoke with Kurt CHARLES) @ [phone] (patient has aphasia as well as a language barrier). No concerns or questions. Follow up appointment scheduled. Encouraged to contact office for questions or concerns.
== END 2023-11-21 10:35 | disposition home or self-care (01) ==
PROVIDERS: PCP Physician Assistant Medical; Referring Provider Physical Medicine & Rehabilitation; Visit Provider Physical Medicine & Rehabilitation
DX: M48.02 Spinal stenosis, cervical region (principal); M50.123 Cervical disc disorder at C6-C7 level with radiculopathy
CPT/HCPCS: 62321; 99152; J1100; J2250; J3490

== ENCOUNTER → 2023-12-29 12:43 | Outpatient (CLI) | payer MEDICARE, OTHER, SELFPAY ==
[2022-05-06 14:52] VITALS: BMI 26.5
--- NOTE | 2023-12-29 | DI.MRI.S_ITS ---
PROCEDURE: MR HEAD/BRAIN WO/W CON INDICATIONS: CEREBRAL INFARCTION TECHNIQUE: Noncontrast axial T1 spin echo, axial T2 fast spin echo, sagittal and axial FLAIR, coronal T2 fast spin echo, axial gradient echo, axial diffusion and ADC through the brain. After the administration of contrast, axial and coronal and sagittal T1 spin echo with fat saturation through the brain. COMPARISON: [facility], MR, MR HEAD/BRAIN WO CON, 05/06/2022, 14:48. [facility], CT, CT ANGIO HEAD AND NECK, 09/14/2023, 12:10. FINDINGS: Image quality: Excellent. CSF spaces: Basal cisterns are patent. No extra-axial fluid collections. Ventricles are normal in size and shape. Brain: No midline shift. No intracranial bleeds or masses. No abnormal intracranial enhancement. There is cerebral volume loss for age. There is periventricular white matter chronic small vessel ischemic change. The brainstem appears normal. Diffusion-weighted images demonstrate no acute infarct. Mild areas of prior infarction can be seen, including involving the deep white matter of the left frontal lobe. Normal intravascular flow voids are present. Symmetric calcification can be seen involving the basal ganglia, which is considered to be normal for age. Skull and face: Calvarial marrow is normal in signal. Orbits appear normal. Note is made of bilateral lens replacements. Sinuses: Sinuses and mastoids appear clear. IMPRESSION: Mild areas of prior infarction can be seen, including involving the deep white matter of the left frontal lobe. No findings of acute or subacute infarction can be seen. No masses or abnormal enhancement can be seen. Dictated by: Kvng Rush M.D. on 12/29/2023 at 13:38 Approved by: Kvng Rush M.D. on 12/29/2023 at 13:42
== END ==
PROVIDERS: PCP Physician Assistant Medical; Referring Provider Physician Assistant Medical; Visit Provider Physician Assistant Medical
DX: I63.9 Cerebral infarction, unspecified
CPT/HCPCS: 70553; A9579

== ENCOUNTER 2024-10-11 06:45 | Outpatient (CLI) | payer MEDICARE, OTHER, SELFPAY ==
[2022-05-06 14:52] VITALS: BMI 26.5
[2024-10-11] VITALS (17 sets, daily range): BP systolic 121–196; BP diastolic 55–90; PULSE 54–94; RESP 10–20; TEMP 36.5; O2SAT 96–100
--- NOTE | 2024-10-11 | PATH_ITS ---
[facility] Accession Number: [id number] No. of containers..01 Tissue No. of containers..08 Slide . 01 Material submitted: . bone marrow - BONE MARROW- CORE . 01 Diagnosis: BONE MARROW, ASPIRATE, AND BIOPSY: - Mildly hypocellular marrow for the age 15% cellularity with trilineage hematopoiesis and maturation, and slight decreased megakaryopoiesis. - Negative for morphologic and immunophenotypic evidence of dysplasia in suboptimal aspirate. - Storage iron is decreased with no ring sideroblasts seen in suboptimal aspirate. - Reticulin fibrosis is not increased. - Chromosomal analysis is pending. - FISH for MDS is pending. - See comment. . COMMENT: Flow cytometry of the concurrent bone marrow aspirate specimen shows: No monotypic B-cells or aberrant T-cell populations. No increased or aberrant blasts. No monotypic plasma cell population (see flow report for more details [phone]). Overall assessment of morphology and flow cytometry suggest peripheral etiology of the patient normocytic anemia. Correlation with ordered chromosomal analysis, and FISH MDS panel is recommended and will be reported in addendum. TXN 10/16/2024 1541 Local . 01 Electronically signed: . Chrystal Lucia MD, Pathologist NPI- [id number] . 01 Gross description: . Received in formalin with two identifiers and no site on jar, are four romero fragments of bone and hemorrhagic material ranging from 0.2 x 0.2 x 0.2 cm to 1.8 x 0.2 x 0.2 cm. Submitted entirely in cassette A1 following decalcification in Immunocal. ([id number]) /SAM 10/12/2024 1852 Local . 01 Microscopic: . CLINICAL HISTORY: 83 years old female patient with history of anemia of unknown etiology. - PERIPHERAL BLOOD SMEAR: Not provided. . . HEMOGRAM (Per provided report dated 08/06/2024): WBC: 4.7x K/uL RBC: 3.5x K/uL HGB: 9.9g/dL HCT: 31.6% MCV: 88.3fL RDW: 13.1% PLT: 171x K/uL Absolute neutrophils: 2.5 k/uL . - BONE MARROW ASPIRATE SMEAR AND TOUCH PREPARATION: The aspirates and touch preparation are suboptimal, due to rare spicules and hemodilution Erythroid series: Present and no evidence of dysplasia. Myeloid series: Present with no evidence of dysplasia. Blasts are not increased. Megakaryocytes: Occasional forms present with unremarkable morphology. - BONE MARROW ASPIRATE SMEAR PREPARED FROM FLOW CYTOMETRY SAMPLE (200 CELLS COUNTED ON ASPIRATE): - BLASTS: 0.5% . GRANULOCYTIC SERIES: 63% Promyelocytes: 0% Neutrophilic myelocytes and metamyelocytes: 12.0% Segmented neutrophils and bands: 50.0% Eosinophils and its precursors: 1.0% Basophils and its precursors: 0% . ERYTHROCYTIC SERIES: 23.5% Pronormoblasts: 0% Other normoblasts: 23.5% . OTHER SERIES: 13.0% Lymphocytes: 11.5% Monocytes: 1.5% Plasma cells: 0% - BONE MARROW BIOPSY: Marrow biopsy is adequate (composed of bone marrow and blood clot materials). Cellularity: Mildly hypocellular for the age 15%. M:E ratio: approximately 1:1 by immune stains. Megakaryocytes: Slightly decreased with subset with atypical morphology <10% no definite dysplasia. No increased numbers of immature cells, or granulomas are identified. Small interstitial well demarcated unremarkable lymphoid aggregate seen. - IMMUNOHISTOCHEMICAL STAINS ARE PERFORMED ON CORE SECTIONS TO BETTER ASSESS MARROW ELEMNTS WITH APPROPRIATE CONTROLS: CD3: Highlights scattered T cells with small interstitial lymphoid aggregate with normal morphology. CD20: Highlights scattered rare B cells with small interstitial lymphoid aggregate with normal morphology. CD34: Highlights myeloid blasts 2%. CD117: Highlights occasional scattered mast cells. CD15: Highlights myeloid elements. CD71 and E-cadherin: Highlights erythroid elements. FACTORVIII: Highlights slightly decreased megakaryocytes with subset of atypical forms <10%, no definite dysplasia. -- SPECIAL STAINS PERFORMED ON ASPIRATE, AND CORE BIOPSY WITH APPROPRIATE CONTROLS: Iron special stain (aspirate): Decreased with no ring sideroblast seen in suboptimal aspirate. Reticulin special stain (core biopsy): No increased reticulin fibrosis. Technical Note: This test was developed, and the performance characteristics were validated by [employer]. It has not been cleared or approved by the Food and Drug Administration. . 01 Pathologist provided ICD-10: D64.9 . 01 CPT . 820861, 593593, 383803, 347753, 557422, N33411, U86711 Specimen Comment: A courtesy copy of this report has been sent to [phone] Performed at: [address] [id number] MD Glenn Cowart MD Phone: [phone]
--- NOTE | 2024-10-11 06:47 | DI.CT.S_ITS ---
PROCEDURE: CT BIOPSY BONE DEEP Sedation analgesia for 30 minutes. INDICATIONS: ANEMIA / EVAL FOR MEDIASTINAL ADENOPATHY TECHNIQUE: The indications, alternatives, benefits, risks, and possible complications of the procedure were communicated to the patient. Informed written consent from the patient was obtained and placed in the chart. Continuous EKG and hemodynamic monitoring was started by trained personnel. 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 The appropriate site for percutaneous access to the biopsy target was marked, was prepped and draped sterilely, and was infused with local anaesthesia. Under CT guidance, a core biopsy trocar and needle set was advanced to the biopsy target, and specimen(s) were obtained. The trocar and needle were then removed, and the patient was sent for post-procedure monitoring. COMPARISON: None. FINDINGS: Biopsy site: Right posterior iliac crest Needle: 11 gauge biopsy needle with introducer trocar. Number of passes: 2 Medications: 1% lidocaine for local anaesthesia. IV Fentanyl and Versed for conscious sedation for 30 minutes (see nursing record). Complications: None. IMPRESSION: Successful CT-guided bone biopsy and marrow aspiration of right iliac bone. Dictated by: Ousmane Hunt M.D. on 10/11/2024 at 10:38 Approved by: Ousmane Hunt M.D. on 10/11/2024 at 17:05
[2024-10-11 08:01] LABS: Hematocrit 31.9 % (36-46); Hemoglobin 10.5 g/dL (12.0-16.0); Mean Corpuscular Hemoglobin 28.9 PG (26-34); Mean Corpuscular Volume 87.7 fL (80-100); Platelet Count 289 X10^3/uL (150-400); Red Blood Cell Count 3.64 X10^6/uL (4.0-5.2); Red Cell Distribution Width 16.1 % (11.6-14.8)
[2024-10-11] MEDS: MIDAZOLAM 2 MG/2 ML VIAL 1 MG IV (08:47)
[2024-10-11] MEDS: fentaNYL 100 MCG/2 ML INJ 50 MCG IV (08:47)
[2024-10-11] MEDS: LIDOCAINE 2% INJ MDV 20ML 20 ML INJ (09:00)
[2024-10-11] MEDS: BUPIVACAINE 0.5% (PF) 30 ML VIAL 10 ML INJ (09:00)
[2024-10-11 10:58] LABS: Prothrombin Time 10.9 SECONDS (9.4-12.5)
== END 2024-10-11 10:20 | disposition home or self-care (01) ==
PROVIDERS: Radiology Diagnostic Radiology; PCP Physician Assistant Medical; Referring Provider Internal Medicine Medical Oncology; Visit Provider Internal Medicine Medical Oncology
DX: D64.9 Anemia, unspecified (principal)
CPT/HCPCS: 20225; 77012; 85027; 85610; 99152; 99153; J2250; J3010

== ENCOUNTER 2024-12-03 08:04 | Outpatient (CLI) | payer MEDICARE, OTHER, SELFPAY ==
[2022-05-06 14:52] VITALS: BMI 26.5
[2024-12-03] VITALS (13 sets, daily range): BP systolic 157–224; BP diastolic 76–106; PULSE 60–76; RESP 12–21; TEMP 36.2; O2SAT 98–100
--- NOTE | 2024-12-03 08:05 | DI.RAD.S_ITS ---
PROCEDURE: PAIN C/T INTERLAMINAR INJECT INDICATIONS: C6/7 TL CANDELARIO COMPARISON: [facility], , PAIN C/T INTERLAMINAR INJECT, 11/21/2023, 11:02. FINDINGS/IMPRESSION: Fluoroscopic spot filming was performed to verify placement of spinal needles at the C6-7 level(s), as labeled on the films. Appropriate location(s) of the needle tip(s) was confirmed by injection of iodinated contrast. Dictated by: Cristobal Patten M.D. on 12/03/2024 at 11:00 Approved by: Cristobal Patten M.D. on 12/03/2024 at 11:03
[2024-12-03] MEDS: MIDAZOLAM 2 MG/2 ML VIAL IV (08:51)
[2024-12-03] MEDS: BUPIVACAINE 0.25% (PF) VIAL 2 ML INJ (09:01)
[2024-12-03] MEDS: iopamidoL 15 ML VIAL 3 ML INJ (09:01)
[2024-12-03] MEDS: DEXAMETHASONE 10 MG/ML VIAL 20 MG INJ (09:02)
[2024-12-03] MEDS: MIDAZOLAM 2 MG/2 ML VIAL 1 MG IV (09:05)
--- NOTE | 2024-12-03 09:20 | P.PCN_ITS ---
Date/Time/Diagnoses Date of procedure: 12/03/24 Time of procedure: 09:20 Pre-procedure diagnosis: 1. CERVICAL STENOSIS, 2. CERVICAL HNP WITH UPPER EXTREMITY RADICULAR FEATURES Post-procedure diagnosis: same Procedure Notes Procedure: 1. FLUORSCOPICALLY GUIDED CONTRAST CONTROLLED INTERLAMINAR EPIDURAL STEROID INJECTION - C6/7 TL CANDELARIO Indications: Marcie is referred by VINH Lane for treatment of Cervical HNP with Upper Extremity Paresthesias. Physician: Ayden Ríos Total Fluoroscopy time (seconds): 27 Total sedation minutes: 25 Complications: none Procedure in detail & Post-procedure care: FINDINGS Cervical Stenosis due to disc deterioration and nerve root irritation and nerve root irritation DESCRIPTION OF PROCEDURE Fluoroscopically guided, contrast-controlled C6/7 translaminar epidural steroid injection with conscious sedation. Following review of allergy and review of potential side effects and complications, including, but not necessarily limited to, infection, allergic reaction, local tissue breakdown, temporary as well as permanent nerve injury, stroke, paralysis, and possible , the patient indicated that patient understood and agreed to proceed. An informed consent document was signed by the patient, witnessed by a nurse, and placed in the patient's chart. Additionally, other treatment options including modalities, medications, and physical therapy were reviewed with the patient. After review of previous anaesthesic history and IV conscious sedation the patient was deemed safe to proceed with today?s procedure with IV conscious sedation as ASA class II designation. Safety time-out was performed to confirm patient ID, procedure to be performed and site of procedure. IV sedation was accomplished with a combination of 3mg of Versed administered by the RN after DO order, titrated to patient comfort during the course of the procedure while the patient remained responsive to all verbal commands. In the prone position, following sterile prep and drape of the cervical region, the C6/7 translaminar space was identified fluoroscopically. The skin was anesthetized via a 25-gauge 1.5-inch needle with 1% lidocaine solution. At this point, a 25-gauge, 2.5-inch short bevel spinal needle was atraumatically introduced and advanced under fluoroscopic guidance into epidural space at the C6/7 translaminar space. Depth was confirmed on lateral view. Radiological data, including multiple fluoroscopic views of the cervical spine, reveal a spinal needle at the C6/7 translaminar space. Lateral views then show placement of the needle in the epidural space. Subsequent views show contrast material flowing superiorly and inferiorly in the epidural space. DSA fluoroscopy with live contrast injection, once again, confirmed no vascular or intrathecal uptake. At this point, using loss of resistance technique with saline and air, the epidural space was entered. Following negative aspiration, injection of approximately 1.5 cc of Isovue-200 with live fluoroscopy in the AP view confirmed epidural flow in the epidural space without vascular or intrathecal uptake observed. Subsequently, a test dose of 1 cc of 1% lidocaine solution was injected and patient was observed for two minutes without signs or symptoms of complications, including abdominal pain, shortness of breath, bilateral upper or lower extremity weakness, nausea and vomiting, prior to steroid injection. At this point, 2cc or 20mg of dexamethasone was then injected without incident. The patient tolerated the procedure well without signs or symptoms of complic ations prior to being transferred to the recovery area for further monitoring, The patient was then transferred to the recovery area where they were observed for an appropriate period of time after the injection. The patient reported a VAS score of 6 prior to the procedure and a post-procedure VAS of 0. POST OP INSTRUCTIONS The patient was provided a Pain Log to continue to record their response to the target-specific procedure prior to follow-up visit with the referring provider. Additionally, specific post-injection care instructions and a contact number to our office were provided if concerns arise regarding possible complications associated with the procedure are suspected.
== END 2024-12-03 09:46 | disposition home or self-care (01) ==
PROVIDERS: PCP Physician Assistant Medical; Referring Provider Physical Medicine & Rehabilitation; Visit Provider Physical Medicine & Rehabilitation
DX: M48.02 Spinal stenosis, cervical region (principal); M50.123 Cervical disc disorder at C6-C7 level with radiculopathy
CPT/HCPCS: 62321; 99152; 99153; J1100; J2250; J3490

== ENCOUNTER 2025-04-17 07:41 | Outpatient (CLI) | payer MEDICARE, OTHER, SELFPAY ==
[2022-05-06 14:52] VITALS: BMI 26.5
[2025-04-17 08:40] VITALS: BP 187/77; PULSE 67; RESP 16; TEMP 36.9; O2SAT 99
[2025-04-17 09:06] VITALS: BP 197/88; PULSE 75; RESP 16; O2SAT 100
[2025-04-17] MEDS: MIDAZOLAM 2 MG/2 ML VIAL IV (09:10)
[2025-04-17 09:15] VITALS: BP 147/61; PULSE 70; RESP 16; O2SAT 99
[2025-04-17] MEDS: iopamidoL 15 ML VIAL 3 ML INJ (09:17)
[2025-04-17] MEDS: BUPIVACAINE 0.25% (PF) VIAL 2 ML INJ (09:17)
[2025-04-17] MEDS: DEXAMETHASONE 10 MG/ML VIAL 20 MG INJ (09:17)
[2025-04-17 09:20] VITALS: BP 151/70; PULSE 71; RESP 16; O2SAT 100
[2025-04-17 09:30] VITALS: BP 183/75; PULSE 70; RESP 18; O2SAT 100
--- NOTE | 2025-04-17 09:30 | P.PCN_ITS ---
Date/Time/Diagnoses Date of procedure: 04/17/25 Time of procedure: 09:30 Pre-procedure diagnosis: 1. FACET ARTHROPATHY 2. AXIAL NECK PAIN Post-procedure diagnosis: same Procedure Notes Procedure: 1. FLUOROSCOPICALLY GUIDED, CONTRAST-CONTROLLED RIGHT C4/5, C5/6 FACET JOINT INJECTIONS WITH CONSCIOUS SEDATION. Indications: Marcie is referred by ARELI Lane for treatment of Axial Neck Pain Physician: Ayden Ríos Total Fluoroscopy time (seconds): 7 Total sedation minutes: 7 Complications: none Procedure in detail & Post-procedure care: DESCRIPTION OF PROCEDURE Fluoroscopically guided, contrast-controlled right C4/5, C5/6 facet joint injections with conscious sedation. Following review of allergy and review of potential side effects and complications, including, but not necessarily limited to, infection, allergic reaction, local tissue breakdown, stroke, temporary or permanent nerve injury and paralysis, the patient indicated that the patient understood and agreed to proceed. An informed consent document was signed by the patient, witnessed by a nurse, and placed in the patient's chart. Additionally, other treatment options including medications, modalities, and physical therapy were reviewed with the patient. After review of previous anaesthesic history and IV conscious sedation the patient was deemed safe to proceed with today?s procedure with IV conscious sedation as ASA class II designation. Safety time-out was performed to confirm patient ID, procedure to be performed and site of procedure. IV sedation was accomplished with a combination of 2mg of Versed was administered by the RN after DO order, titrated to patient comfort during the course of the procedure while the patient remained responsive to all verbal commands In the prone position, following sterile prep and drape of the cervical spine region, the posterior aspect of the right C4/5, C5/6 facet joints were identified fluoroscopically. The skin was anesthetized via a 25-gauge 1.5-inch needle with 1% lidocaine solution into the corresponding facet joints. At this point, a 25-gauge 2.5-inch spinal needle was atraumatically introduced and advanced under fluoroscopic guidance into the corresponding facet joints. Following negative aspiration, injections of approximately 0.2-cc of Isovue 200 confirmed interarticular placement without vascular uptake. At this point, a total of 1cc including 0.5cc or 5mg of dexamethasone combined with 0.5cc of 1% lidocaine solution was injected without complication into each of the corresponding facet joints. The procedure tolerated the procedure well without signs or symptoms of complications prior to transfer to the recovery area continued monitoring without incident. The patient was then transferred to the recovery area where they were observed for an appropriate period of time after the injection. The patient reported a VAS score of 7 prior to the procedure and a post- procedure VAS of 0. POST OP INSTRUCTIONS They were provided a Pain Log to continue to record their response to the target-specific procedure prior to their follow-up visit with their referring physician. Additionally, specific post-injection care instructions and a contact number to our office were provided if concerns arise regarding possible complications associated with the procedure are suspected.
[2025-04-17 09:40] VITALS: BP 164/75; PULSE 71; RESP 18; O2SAT 100
== END 2025-04-17 09:50 | disposition home or self-care (01) ==
LOC: RAD 07:42
PROVIDERS: PCP Physician Assistant Medical; Referring Provider Physical Medicine & Rehabilitation; Visit Provider Physical Medicine & Rehabilitation
DX: M47.812 Spondylosis without myelopathy or radiculopathy, cervical region (principal)
CPT/HCPCS: 64490; 64491; 99152; J1100; J2250; J3490

== ENCOUNTER → 2025-05-21 13:03 | Outpatient (CLI) | payer MEDICARE, OTHER, SELFPAY ==
[2022-05-06 14:52] VITALS: BMI 26.5
--- NOTE | 2025-05-21 13:06 | DI.RAD.S_ITS ---
PROCEDURE: XR SHOULDER RT MIN 2V INDICATIONS: Impingement TECHNIQUE: 3 views of the shoulder were acquired. COMPARISON: None. FINDINGS: Bones: No fractures or dislocations. Moderate glenohumeral joint space narrowing and marginal osteophytosis and moderate hypertrophic acromioclavicular arthropathy. Multiple rounded calcific densities within the soft tissues around the humeral head are consistent with the sequelae of calcific tendinopathy. No suspicious bony lesions. Visualized ribs appear intact. Soft tissues: No suspicious soft tissue calcifications. IMPRESSION: Degenerative change of the glenohumeral and acromioclavicular joints and sequelae of calcific tendinopathy without evidence of acute bony abnormality. Dictated by: Asif Miner M.D. on 05/21/2025 at 18:31 Approved by: Asif Miner M.D. on 05/21/2025 at 18:33
--- NOTE | 2025-05-21 13:06 | DI.RAD.S_ITS ---
PROCEDURE: XR SHOULDER LT MIN 2V INDICATIONS: Impingement TECHNIQUE: 3 views of the shoulder were acquired. COMPARISON: [facility], CR, XR SHOULDER RT 2+ VIEWS, 05/21/2025, 12:20. FINDINGS: Bones: No fractures or dislocations. Moderate glenohumeral joint space narrowing and marginal osteophytosis and moderate hypertrophic acromioclavicular arthropathy. Multiple rounded calcific densities within the soft tissues around the humeral head are consistent with sequelae of calcific tendinopathy. No suspicious bony lesions. Visualized ribs appear intact. Soft tissues: No suspicious soft tissue calcifications. IMPRESSION: Degenerative change of the glenohumeral and acromioclavicular joints and probable sequelae of calcific tendinopathy. No evidence of acute bony abnormality. Dictated by: Asif Miner M.D. on 05/21/2025 at 18:33 Approved by: Asif Miner M.D. on 05/21/2025 at 18:35
== END ==
PROVIDERS: PCP Physician Assistant Medical; Referring Provider Physical Medicine & Rehabilitation; Visit Provider Physical Medicine & Rehabilitation
DX: M75.40 Impingement syndrome of unspecified shoulder (principal)
CPT/HCPCS: 20611; 73030; 99214; J0702